=== PATIENT | male | born 1970 | race Caucasian/White ===

== ENCOUNTER 2018-02-15 15:00 | Emergency (ER) | payer MEDICAID ==
[~2018-02-15] VITALS: Ht 185.4 cm; Wt 94.0 kg
[~2018-02-15 15:00] MED LIST: BUPR75TA6 PO; CELE50CA PO; LOSA50TA2 PO; ZOLP-413 PO; ZOLP5TAB6 PO
[2018-02-15] MEDS ORDERED: ONDANSETRON ODT 4 MG ONE (15:27)
[2018-02-15] MEDS ORDERED: ONDANSETRON ODT 4 MG PO ONE (15:30)
[2018-02-15] MEDS ORDERED: hydrALAzine 20 MG/ML, 1ML ONE (15:47)
[2018-02-15] MEDS ORDERED: LORazepam 2 MG/ML, 1ML ONE (15:48)
[2018-02-15 15:49] LABS: ALANINE AMINOTRANSFERASE 55 U/L (12-78); ANION GAP 10 mmol/L (5-15); CHLORIDE 99 mmol/L (98-107); CREATININE 0.95 mg/dL (0.7-1.3)
[2018-02-15 15:52] LABS: ALKALINE PHOSPHATASE 104 U/L (45-117); BILIRUBIN,TOTAL 1.6 mg/dL (0.2-1.0); TOTAL PROTEIN 8.8 g/dL (6.4-8.2)
[2018-02-15 15:53] LABS: BASOPHILS # (AUTO) 0.04 x10^3/uL (0-0.1); BASOPHILS % (AUTO) 1 % (0-1); EOSINOPHILS # (AUTO) 0.02 x10^3/uL (0-0.4); EOSINOPHILS % (AUTO) 0 % (1-7); LYMPHOCYTES # (AUTO) 2.71 x10^3/uL (1-3.4); LYMPHOCYTES % (AUTO) 36 % (22-44); MD NO; MEAN CORPUSCULAR HEMOGLOBIN 32.1 pg (27.5-34.5); MEAN CORPUSCULAR HGB CONC 34.2 g/dL (33.2-36.2); MEAN CORPUSCULAR VOLUME 93.9 fL (81-97); MEAN PLATELET VOLUME 7.9 fL (7.4-10.4); MONOCYTES # (AUTO) 0.55 x10^3/uL (0.2-0.8); MONOCYTES % (AUTO) 7 % (2-9); NEUTROPHILS # (AUTO) 4.28 x10^3/uL (1.8-6.8); NEUTROPHILS % (AUTO) 56 % (42-75); PLATELET COUNT 210 x10^3/uL (130-400); RED BLOOD COUNT 5.47 x10^6/uL (4.38-5.82); RED CELL DISTRIBUTION WIDTH 16.4 % (9.4-14.8)
[2018-02-15] MEDS ORDERED: LORazepam 2 MG/ML, 1ML IVPush ONE (16:00)
[2018-02-15] MEDS ORDERED: hydrALAzine 20 MG/ML, 1ML IV ONE (16:00)
[2018-02-15 16:02] LABS: INTERNATIONAL NORMALIZED RATIO 1.15 (0.93-1.1); PROTHROMBIN TIME 11.9 Seconds (9.6-11.5)
[2018-02-15 16:04] LABS: MICROSCOPIC INDICATED
[2018-02-15 16:09] LABS: TROPONIN I < 0.015 ng/mL (0.000-0.045)
[2018-02-15 16:47] LABS: CULTURE INDICATED? NO
[2018-02-15 18:03] VITALS: BP 175/121
== END 2018-02-15 18:55 | disposition home or self-care (01) ==
LOC: ED 18:18
DX: F41.9 Anxiety disorder, unspecified (principal); R45.1 Restlessness and agitation; F10.239 Alcohol dependence with withdrawal, unspecified; I10 Essential (primary) hypertension
CPT/HCPCS: 36415; 71045; 80053; 81001; 83690; 83880; 84484; 85025; 85610; 93005; 96374; 96375; 99285; J0360; J2060; Q0162

== ENCOUNTER 2018-11-21 09:42 | Inpatient (IN) | payer MEDICAID ==
[~2018-11-21] VITALS: Ht 185.4 cm; Wt 88.7 kg
--- NOTE | 2018-11-21 09:57 | NUR ---
EKG IN TRIAGE
[2018-11-21 10:43] LABS: MEAN CORPUSCULAR HEMOGLOBIN 33.5 pg (27.5-34.5); MEAN CORPUSCULAR HGB CONC 34.2 g/dL (33.2-36.2); MEAN CORPUSCULAR VOLUME 98.1 fL (81-97); MEAN PLATELET VOLUME 8.3 fL (7.4-10.4); PLATELET COUNT 300 x10^3/uL (130-400); RED BLOOD COUNT 4.77 x10^6/uL (4.38-5.82); RED CELL DISTRIBUTION WIDTH 13.1 % (9.4-14.8)
[2018-11-21 10:56] LABS: BASOPHILS # (AUTO) 0.05 x10^3/uL (0-0.1); BASOPHILS % (AUTO) 0 % (0-1); EOSINOPHILS # (AUTO) 0.01 x10^3/uL (0-0.4); EOSINOPHILS % (AUTO) 0 % (1-7); LYMPHOCYTES # (AUTO) 1.43 x10^3/uL (1-3.4); LYMPHOCYTES % (AUTO) 7 % (22-44); MD SCAN; MONOCYTES # (AUTO) 0.74 x10^3/uL (0.2-0.8); MONOCYTES % (AUTO) 4 % (2-9); NEUTROPHILS # (AUTO) 18.13 x10^3/uL (1.8-6.8); NEUTROPHILS % (AUTO) 89 % (42-75)
[2018-11-21 11:02] LABS: ALANINE AMINOTRANSFERASE 25 U/L (12-78); ALKALINE PHOSPHATASE 66 U/L (45-117); BILIRUBIN,TOTAL 1.2 mg/dL (0.2-1.0); CREATININE 1.07 mg/dL (0.7-1.3); TOTAL PROTEIN 8.6 g/dL (6.4-8.2); TROPONIN I < 0.015 ng/mL (0.000-0.045)
[2018-11-21 11:09] LABS: CHLORIDE 94 mmol/L (98-107)
[2018-11-21 11:11] LABS: ANION GAP 12 mmol/L (5-15)
[2018-11-21 11:12] LABS: ALBUMIN 3.6 g/dL (3.4-5.0); CALCIUM 9.8 mg/dL (8.5-10.1)
[2018-11-21] MEDS ORDERED: SODIUM CHLORIDE FLUSH 10ML SYR IVF ONE (11:30)
[2018-11-21] MEDS ORDERED: SODIUM CHLORIDE 0.9% 1,000ML IVBOLUS ONE (11:30)
[2018-11-21] MEDS ORDERED: ASPIRIN 81 MG TABLET CHEW PO ONE (11:30)
[2018-11-21] MEDS ORDERED: CEFTRIAXONE PMX 1GM/50ML 50 ML IVPB ONE (11:30)
[2018-11-21] MEDS ORDERED: RISPERIDONE PO (11:47)
[2018-11-21] MEDS ORDERED: CITA40TA5 PO (11:47)
[2018-11-21] MEDS ORDERED: BUSPAR PO (11:47)
[2018-11-21] MEDS ORDERED: HYDR12.517 PO (11:47)
[2018-11-21] MEDS ORDERED: THIAMINE 100MG TABLET ONE (11:57)
[2018-11-21] MEDS ORDERED: ASPIRIN 81 MG TABLET CHEW ONE (11:57)
[2018-11-21] MEDS ORDERED: LORazepam 2 MG/ML, 1ML ONE (11:57)
[2018-11-21] MEDS ORDERED: CEFTRIAXONE PMX 1GM/50ML 50 ML ONE (11:57)
[2018-11-21] MEDS ORDERED: NS + 40MEQ KCL 1,000 ML IV ONE (11:58)
[2018-11-21] MEDS ORDERED: LORazepam 2 MG/ML, 1ML IVPush PRN ×2 (12:00→17:30)
[2018-11-21] MEDS ORDERED: POTASSIUM CHLORIDE 10% 40 MEQ/30 ML UDC PO ONE (12:00)
[2018-11-21] MEDS ORDERED: THIAMINE 100MG TABLET PO ONE (12:00)
[2018-11-21] MEDS ORDERED: POTASSIUM CHLORIDE 40 MEQ in SODIUM CHLORIDE 0.9% 500 ML IV ONE (12:00)
[2018-11-21] MEDS: AZITHROMYCIN 500 MG in SODIUM CHLORIDE 0.9% 250 ML IV ONE ×2 (12:11→13:03)
--- NOTE | 2018-11-21 12:27 | NUR ---
PT MEDICATED PER EMAR. RESTING IN BED WITH NO COMPLAINTS. CALL LIGHT WITHIN REACH.
[2018-11-21] MEDS ORDERED: ACETAMINOPHEN 325 MG TABLET PO PRN (14:00)
[2018-11-21] MEDS ORDERED: DIPHENHYDRAMINE 25 MG CAPSULE PO PRN (14:00)
[2018-11-21] MEDS ORDERED: LABETALOL 5MG/ML, 20ML IVPush PRN (14:00)
[2018-11-21] MEDS ORDERED: hydrALAzine 20 MG/ML, 1ML IVPush PRN (14:00)
[2018-11-21] MEDS ORDERED: METHOCARBAMOL 500 MG TABLET PO PRN (14:00)
[2018-11-21] MEDS ORDERED: ONDANSETRON 2MG/ML, 2ML IVPush PRN (14:00)
[2018-11-21 14:01] LABS: INTERNATIONAL NORMALIZED RATIO 0.95 (0.93-1.1)
[2018-11-21] MEDS: CEFTRIAXONE PMX 1GM/50ML 50 ML IV SCH (14:09)
--- NOTE | 2018-11-21 14:11 | NUR ---
PT UP TO BATRHOOM TO PROVIDE STOOL SAMPLE. RESTING IN BED. DENIES NEEDS. CALL LIGHT IN REACH.
--- NOTE | 2018-11-21 14:12 | NUR ---
STOOL COLLECTED AND WALKED TO LAB.
[2018-11-21] MEDS ORDERED: ENOXAPARIN 40 MG/0.4 ML ONE (14:19)
[2018-11-21] MEDS ORDERED: NICOTINE 14MG/24 HR PATCH.TD24 ONE (14:19)
[2018-11-21] MEDS: ENOXAPARIN 40 MG/0.4 ML SQ SCH (14:25)
[2018-11-21] MEDS: NICOTINE 14MG/24 HR PATCH.TD24 TD SCH (14:25)
[2018-11-21] MEDS ORDERED: LIDODERM 5% PATCH TD PRN (14:30)
[2018-11-21] MEDS ORDERED: cloniDINE 0.1MG PATCH TD SCH (14:30)
--- NOTE | 2018-11-21 14:30 | NUR ---
PT MEDICATED PER EMAR. PT PUT INTO SPECIAL ISOLATION CONTACT. C-DIFF RESULTS PENDING.
[2018-11-21] MEDS ORDERED: ALBUTEROL SULFATE 2.5 MG/3 ML ONE (14:39)
[2018-11-21] MEDS ORDERED: ALBUTEROL/IPRATROPIUM 2.5MG/0.5MG, 3 ML ONE (14:40)
--- NOTE | 2018-11-21 15:06 | NUR ---
REPORT GIVEN TO HEYDI JOHNSON ON TELE 2.
[2018-11-21 15:19] LABS: CLOSTRIDIUM DIFFICILE ANTIGEN NEGATIVE; CLOSTRIDIUM DIFFICILE TOXIN NEGATIVE (Negative)
[2018-11-21] MEDS ORDERED: ALBUTEROL/IPRATROPIUM 2.5MG/0.5MG, 3 ML NPPB ONE (15:30)
[2018-11-21 16:03] VITALS: BP 136/81
[2018-11-21] MEDS: CHLORDIAZEPOXIDE 10 MG CAPSULE PO SCH ×2 (16:51→21:20)
[2018-11-21] MEDS: GABAPENTIN 300 MG CAPSULE PO SCH ×2 (16:51→21:20)
[2018-11-21] MEDS ORDERED: CHLORDIAZEPOXIDE 10 MG CAPSULE PO PRN (17:00)
[2018-11-21 17:05] LABS: ANION GAP 7 mmol/L (5-15); CALCIUM 8.3 mg/dL (8.5-10.1); CHLORIDE 101 mmol/L (98-107); CREATININE 0.97 mg/dL (0.7-1.3)
[2018-11-21] MEDS: NS + 40MEQ KCL 1,000 ML IV SCH (18:05)
[2018-11-21] MEDS: POTASSIUM CHLORIDE 20 MEQ TAB.ER.PRT PO SCH (18:05)
[2018-11-21 19:22] VITALS: BP 117/77
[2018-11-21] MEDS: ALBUTEROL/IPRATROPIUM 2.5MG/0.5MG, 3 ML NPPB SCH (20:39)
[2018-11-21] MEDS: GUAIFENESIN ER 600 MG TABLET PO SCH (21:19)
[2018-11-21] MEDS: THIAMINE 100MG TABLET PO SCH (21:20)
[2018-11-21] MEDS: DOXYCYCLINE 100MG TABLET PO SCH (21:20)
[2018-11-21] MEDS ORDERED: POTASSIUM CHLORIDE 20 MEQ TAB.ER.PRT PO ONE (22:00)
[2018-11-21] MEDS: KETOROLAC 30 MG/1 ML IV PRN (22:37)
[2018-11-22] MEDS: NS + 40MEQ KCL 1,000 ML IV SCH ×3 (02:05→18:18)
[2018-11-22 04:00] VITALS: BP 137/76
[2018-11-22 05:08] LABS: MEAN CORPUSCULAR HEMOGLOBIN 32.9 pg (27.5-34.5); MEAN CORPUSCULAR HGB CONC 33.1 g/dL (33.2-36.2); MEAN CORPUSCULAR VOLUME 99.5 fL (81-97); MEAN PLATELET VOLUME 8.5 fL (7.4-10.4); PLATELET COUNT 243 x10^3/uL (130-400); RED BLOOD COUNT 3.67 x10^6/uL (4.38-5.82); RED CELL DISTRIBUTION WIDTH 13.4 % (9.4-14.8)
[2018-11-22 05:18] LABS: ANION GAP 6 mmol/L (5-15); CALCIUM 8.6 mg/dL (8.5-10.1); CHLORIDE 105 mmol/L (98-107); CREATININE 0.84 mg/dL (0.7-1.3)
[2018-11-22] MEDS: CHLORDIAZEPOXIDE 10 MG CAPSULE PO SCH ×4 (05:45→21:06)
[2018-11-22 05:53] LABS: BASOPHILS # (AUTO) 0.03 x10^3/uL (0-0.1); BASOPHILS % (AUTO) 0 % (0-1); EOSINOPHILS # (AUTO) 0.18 x10^3/uL (0-0.4); EOSINOPHILS % (AUTO) 2 % (1-7); LYMPHOCYTES # (AUTO) 2.46 x10^3/uL (1-3.4); LYMPHOCYTES % (AUTO) 21 % (22-44); MD SCAN; MONOCYTES # (AUTO) 0.71 x10^3/uL (0.2-0.8); MONOCYTES % (AUTO) 6 % (2-9); NEUTROPHILS # (AUTO) 8.65 x10^3/uL (1.8-6.8); NEUTROPHILS % (AUTO) 72 % (42-75)
[2018-11-22 07:40] VITALS: BP 162/84
[2018-11-22] MEDS: POTASSIUM CHLORIDE 20 MEQ TAB.ER.PRT PO SCH ×2 (08:21→15:51)
[2018-11-22] MEDS: GABAPENTIN 300 MG CAPSULE PO SCH ×3 (08:21→21:05)
[2018-11-22] MEDS: GUAIFENESIN ER 600 MG TABLET PO SCH ×2 (08:21→21:06)
[2018-11-22] MEDS: THIAMINE 100MG TABLET PO SCH ×2 (08:21→21:06)
[2018-11-22] MEDS: MULTIVITAMIN 1 TABLET PO SCH (08:22)
[2018-11-22] MEDS: DOXYCYCLINE 100MG TABLET PO SCH ×2 (08:22→21:06)
[2018-11-22] MEDS: ALBUTEROL/IPRATROPIUM 2.5MG/0.5MG, 3 ML NPPB SCH ×3 (09:34→20:43)
[2018-11-22] MEDS: KETOROLAC 30 MG/1 ML IV PRN ×2 (10:10→21:05)
[2018-11-22 13:25] VITALS: BP 121/82
[2018-11-22] MEDS: NICOTINE 14MG/24 HR PATCH.TD24 TD SCH (13:53)
[2018-11-22] MEDS: ENOXAPARIN 40 MG/0.4 ML SQ SCH (13:53)
[2018-11-22] MEDS: CEFTRIAXONE PMX 1GM/50ML 50 ML IV SCH (13:54)
[2018-11-22 19:06] VITALS: BP 149/80
[2018-11-23 02:15] VITALS: BP 166/87
[2018-11-23] MEDS: NS + 40MEQ KCL 1,000 ML IV SCH ×2 (02:25→15:22)
[2018-11-23] MEDS: CHLORDIAZEPOXIDE 10 MG CAPSULE PO SCH ×3 (05:47→16:21)
[2018-11-23] MEDS: ALBUTEROL/IPRATROPIUM 2.5MG/0.5MG, 3 ML NPPB SCH ×2 (06:19→14:11)
[2018-11-23] MEDS: POTASSIUM CHLORIDE 20 MEQ TAB.ER.PRT PO SCH ×2 (08:38→16:22)
[2018-11-23] MEDS: THIAMINE 100MG TABLET PO SCH (08:39)
[2018-11-23] MEDS: GUAIFENESIN ER 600 MG TABLET PO SCH (08:39)
[2018-11-23] MEDS: GABAPENTIN 300 MG CAPSULE PO SCH ×2 (08:39→16:21)
[2018-11-23] MEDS: DOXYCYCLINE 100MG TABLET PO SCH (08:39)
[2018-11-23] MEDS: MULTIVITAMIN 1 TABLET PO SCH (08:39)
[2018-11-23 08:45] VITALS: BP 169/107
[2018-11-23] MEDS ORDERED: CEFD300C37 PO (08:55)
[2018-11-23] MEDS ORDERED: THIA100T67 PO (08:55)
[2018-11-23] MEDS ORDERED: GUAI600T31 PO (08:55)
[2018-11-23] MEDS ORDERED: NICO-486 TD (08:55)
[2018-11-23] MEDS ORDERED: DOXY100T PO (08:55)
[2018-11-23 13:25] VITALS: BP 179/115
[2018-11-23] MEDS: NICOTINE 14MG/24 HR PATCH.TD24 TD SCH (14:21)
[2018-11-23] MEDS: ENOXAPARIN 40 MG/0.4 ML SQ SCH (14:21)
[2018-11-23] MEDS: CEFTRIAXONE PMX 1GM/50ML 50 ML IV SCH (14:21)
[2018-11-23 15:22] VITALS: BP 161/94
[2018-11-23] MEDS ORDERED: GABA300C10 PO (17:22)
== END 2018-11-23 18:30 | disposition home or self-care (01) | DRG 871 ==
LOC: ED 11:45 → EDIP 12:14 → 4WST 15:49
PROVIDERS: ADMIT Internal Medicine; ATTEND Internal Medicine
DX: A41.9 Sepsis, unspecified organism (principal); J18.0 Bronchopneumonia, unspecified organism; J96.01 Acute respiratory failure with hypoxia; E44.0 Moderate protein-calorie malnutrition; E87.1 Hypo-osmolality and hyponatremia; E51.9 Thiamine deficiency, unspecified; F10.239 Alcohol dependence with withdrawal, unspecified; D75.89 Other specified diseases of blood and blood-forming organs; Z68.25 Body mass index [BMI] 25.0-25.9, adult; E87.6 Hypokalemia; I10 Essential (primary) hypertension
CPT/HCPCS: 36415; 84145; 99291; J7620; 71046; 80048; 80053; 83036; 83605; 84484; 85025; 85610; 87040; 87324; 93005; 94640; 96365; 96375; G0378; J0456; J0696; J1650; J1885; J3480; J2060; J7030; J7040; J7050

== ENCOUNTER 2019-08-02 16:56 | Inpatient (IN) | payer MEDICAID ==
[~2019-08-02] VITALS: Ht 182.9 cm; Wt 77.0 kg
[~2019-08-02 16:56] MED LIST changes: +BUSPAR PO; +CEFD300C37 PO; +CITA40TA5 PO; +DOXY100T PO; +GABA300C10 PO; +GUAI600T31 PO; +HYDR12.517 PO; +NICO-486 TD; +RISPERIDONE PO; +THIA100T67 PO
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
--- NOTE | 2019-08-02 17:50 | NUR ---
[facility] RECEVIED FROM HEYDI GIMENEZ. ASSUMED CARE.
[2019-08-02] MEDS ORDERED: ACETAMINOPHEN 500 MG TABLET ONE (17:51)
[2019-08-02 18:22] LABS: RAPID INFLUENZA A Negative (Negative); RAPID INFLUENZA B Negative (Negative)
[2019-08-02 18:28] LABS: MEAN CORPUSCULAR HEMOGLOBIN 27.2 pg (27.5-34.5); MEAN CORPUSCULAR HGB CONC 33.1 g/dL (33.2-36.2); MEAN CORPUSCULAR VOLUME 82.1 fL (81-97); PLATELET COUNT 640 x10^3/uL (130-400); RED BLOOD COUNT 3.24 x10^6/uL (4.38-5.82); RED CELL DISTRIBUTION WIDTH 15.6 % (9.4-14.8)
[2019-08-02] MEDS ORDERED: ACETAMINOPHEN 500 MG TABLET PO ONE (18:30)
[2019-08-02] MEDS ORDERED: SODIUM CHLORIDE 0.9% 1,000ML IVBOLUS ONE ×2 (18:30→19:00)
[2019-08-02 18:31] LABS: ANION GAP 10 mmol/L (5-15); CALCIUM 8.6 mg/dL (8.5-10.1); CHLORIDE 98 mmol/L (98-107); CREATININE 1.03 mg/dL (0.7-1.3)
[2019-08-02 18:37] LABS: ALANINE AMINOTRANSFERASE 32 U/L (12-78); ALKALINE PHOSPHATASE 293 U/L (45-117); BILIRUBIN,TOTAL 1.2 mg/dL (0.2-1.0); TOTAL PROTEIN 7.4 g/dL (6.4-8.2)
--- NOTE | 2019-08-02 18:47 | NUR ---
REPORT GIVEN TO HEYDI DICKERSON.
[2019-08-02] MEDS ORDERED: SODIUM CHLORIDE FLUSH 10ML SYR IVF ONE (19:00)
[2019-08-02 19:02] LABS: MD YES
[2019-08-02 19:27] LABS: BAND#(MANUAL) 0.23 x10^3/uL; BANDS%(MANUAL) 1 % (0-7); BASOS#(MANUAL) 0.23 x10^3/uL (0-0.1); BASOS% (MANUAL) 1 % (0-1); EOS#(MANUAL) 0.46 x10^3/uL (0.0-0.4); EOS% (MANUAL) 2 % (1-7); LYMPH#(MANUAL) 2.51 x10^3/uL (1-3.4); LYMPHS% (MANUAL) 11 % (22-44); MONOS#(MANUAL) 0.68 x10^3/uL (0.3-2.7); MONOS% (MANUAL) 3 % (2-9); SEGS% (MANUAL) 82 % (42-75)
[2019-08-02 19:29] LABS: ROULEAUX 1+
[2019-08-02] MEDS ORDERED: BENZONATATE 100 MG CAPSULE PO ONE (19:30)
[2019-08-02] MEDS ORDERED: AZITHROMYCIN 500 MG in SODIUM CHLORIDE 0.9% 250 ML IV ONE (19:30)
[2019-08-02] MEDS ORDERED: CEFTRIAXONE PMX 1GM/50ML 50 ML IV ONE ×2 (19:30→19:31)
[2019-08-02 19:31] LABS: <PLATELET ESTIMATE> INCREASED; <PLT MORPHOLOGY> NORMAL PLT MORPH; ANISOCYTOSIS 1+; HYPOCHROMIA 1+; POLYCHROMASIA 1+
--- NOTE | 2019-08-02 19:50 | NUR ---
REPORT TO HEYDI MOBLEY. PT UPDATED ON PLAN OF CARE, VERBALIZES UNDERSTANDING, DENIES ANY FURTHER NEEDS OR CONCERNS AT THIS TIME. CALL LIGHT IN REACH. AWAITING TRANSPORT AT THIS TIME.
[2019-08-02] MEDS ORDERED: CEFTRIAXONE PMX 1GM/50ML 50 ML ONE (19:52)
[2019-08-02] MEDS ORDERED: FENTANYL PF 100 MCG/2ML ONE (19:56)
[2019-08-02] MEDS ORDERED: FENTANYL PF 100 MCG/2ML IVPush ONE (20:00)
[2019-08-02 20:15] VITALS: BP 109/64
[2019-08-02] MEDS ORDERED: hydrALAzine 20 MG/ML, 1ML IVPush PRN (20:30)
[2019-08-02] MEDS: DOXYCYCLINE 100 MG in DEXTROSE 5% 250 ML IV SCH (21:49)
[2019-08-02] MEDS: POTASSIUM CHLORIDE 20 MEQ, MAGNESIUM SULFATE 2 GM, THIAMINE 200 MG, MVI ADULT 10 ML, FO... IV SCH (21:49)
[2019-08-02] MEDS ORDERED: POTASSIUM CHLORIDE 20 MEQ TAB.ER.PRT PO ONE (22:30)
[2019-08-02 23:08] VITALS: BP 98/52
[2019-08-03 01:05] VITALS: BP 106/64
[2019-08-03] MEDS ORDERED: ALBUTEROL SULFATE 2.5 MG/3 ML NPPB PRN (02:00)
[2019-08-03 02:23] VITALS: BP 109/62
[2019-08-03] MEDS ORDERED: ZOLPIDEM 10MG TABLET PO ONE (02:35)
[2019-08-03 07:55] VITALS: BP 109/65
[2019-08-03 08:50] LABS: MEAN CORPUSCULAR HEMOGLOBIN 26.9 pg (27.5-34.5); MEAN CORPUSCULAR HGB CONC 32.7 g/dL (33.2-36.2); MEAN CORPUSCULAR VOLUME 82.2 fL (81-97); MEAN PLATELET VOLUME 6.3 fL (7.4-10.4); PLATELET COUNT 624 x10^3/uL (130-400); RED CELL DISTRIBUTION WIDTH 15.8 % (9.4-14.8)
[2019-08-03 09:02] LABS: ANION GAP 5 mmol/L (5-15); CALCIUM 8.5 mg/dL (8.5-10.1); CHLORIDE 109 mmol/L (98-107)
[2019-08-03 09:03] LABS: CREATININE 0.63 mg/dL (0.7-1.3)
[2019-08-03] MEDS: KETOROLAC 30 MG/1 ML IV PRN ×2 (09:25→18:17)
[2019-08-03] MEDS: DOXYCYCLINE 100 MG in DEXTROSE 5% 250 ML IV SCH ×2 (09:26→22:26)
[2019-08-03 09:41] LABS: MD YES
[2019-08-03 09:43] LABS: BASOS% (MANUAL) 1 % (0-1); EOS% (MANUAL) 1 % (1-7); LYMPH#(MANUAL) 1.56 x10^3/uL (1-3.4); LYMPHS% (MANUAL) 8 % (22-44); MONOS#(MANUAL) 0.98 x10^3/uL (0.3-2.7); MONOS% (MANUAL) 5 % (2-9); SEG#(MANUAL) 16.58 x10^3/uL (1.8-6.8); SEGS% (MANUAL) 85 % (42-75)
[2019-08-03 09:45] LABS: HYPOCHROMIA 1+
[2019-08-03 09:46] LABS: <PLATELET ESTIMATE> INCREASED; <PLT MORPHOLOGY> NORMAL PLT MORPH; ANISOCYTOSIS 1+
[2019-08-03 13:19] VITALS: BP 111/68
[2019-08-03] MEDS ORDERED: LACTATED RINGERS 1,000 ML IV SCH (15:30)
[2019-08-03] MEDS: GUAIFENESIN ER 600 MG TABLET PO SCH (19:03)
[2019-08-03] MEDS ORDERED: CEFTRIAXONE PMX 1GM/50ML 50 ML IV SCH (20:00)
[2019-08-03 20:28] VITALS: BP 158/72
[2019-08-03] MEDS: ENOXAPARIN 40 MG/0.4 ML SQ SCH (21:03)
[2019-08-03] MEDS: POTASSIUM CHLORIDE 20 MEQ, MAGNESIUM SULFATE 2 GM, THIAMINE 200 MG, MVI ADULT 10 ML, FO... IV SCH (23:03)
[2019-08-04 01:01] VITALS: BP 152/82
[2019-08-04 05:10] VITALS: BP 136/59
[2019-08-04] MEDS: KETOROLAC 30 MG/1 ML IV PRN (05:14)
[2019-08-04 06:41] LABS: MEAN CORPUSCULAR VOLUME 81.7 fL (81-97); MEAN PLATELET VOLUME 6.6 fL (7.4-10.4); PLATELET COUNT 581 x10^3/uL (130-400); RED BLOOD COUNT 3.02 x10^6/uL (4.38-5.82); RED CELL DISTRIBUTION WIDTH 15.9 % (9.4-14.8)
[2019-08-04 06:53] LABS: ALBUMIN 1.5 g/dL (3.4-5.0); ANION GAP 6 mmol/L (5-15); CALCIUM 8.1 mg/dL (8.5-10.1); CHLORIDE 105 mmol/L (98-107)
[2019-08-04 06:56] LABS: ALANINE AMINOTRANSFERASE 20 U/L (12-78); ALKALINE PHOSPHATASE 218 U/L (45-117); BILIRUBIN,TOTAL 0.7 mg/dL (0.2-1.0); CREATININE 0.52 mg/dL (0.7-1.3); TOTAL PROTEIN 6.1 g/dL (6.4-8.2)
[2019-08-04 07:17] LABS: MD YES
[2019-08-04 07:38] LABS: <PLATELET ESTIMATE> INCREASED; <PLT MORPHOLOGY> NORMAL PLT MORPH; ANISOCYTOSIS 1+; BASOS#(MANUAL) 0.18 x10^3/uL (0-0.1); BASOS% (MANUAL) 1 % (0-1); EOS#(MANUAL) 0.36 x10^3/uL (0.0-0.4); EOS% (MANUAL) 2 % (1-7); HYPOCHROMIA 1+; LYMPH#(MANUAL) 1.27 x10^3/uL (1-3.4); LYMPHS% (MANUAL) 7 % (22-44); MONOS#(MANUAL) 1.45 x10^3/uL (0.3-2.7); MONOS% (MANUAL) 8 % (2-9); SEG#(MANUAL) 14.84 x10^3/uL (1.8-6.8); SEGS% (MANUAL) 82 % (42-75)
[2019-08-04] MEDS: GUAIFENESIN ER 600 MG TABLET PO SCH ×2 (08:10→20:06)
[2019-08-04] MEDS: DOXYCYCLINE 100 MG in DEXTROSE 5% 250 ML IV SCH (08:10)
[2019-08-04 08:19] VITALS: BP 103/69
[2019-08-04] MEDS: MORPHINE SULFATE 4 MG/ML, 1ML IVPush PRN ×3 (12:26→22:41)
[2019-08-04 13:35] VITALS: BP 148/79
[2019-08-04] MEDS ORDERED: OMNIPAQUE 350 MG/ML, 75ML BOTTLE ONE (15:46)
[2019-08-04] MEDS ORDERED: NS + 20MEQ KCL 1,000 ML IV SCH (17:00)
[2019-08-04] MEDS ORDERED: VANCOMYCIN PER PHARMACY MC PRN (17:00)
[2019-08-04] MEDS ORDERED: PHARMACOKINETIC CONSULTATION MC ONE (17:30)
[2019-08-04] MEDS ORDERED: PHARMACOKINETIC MONITORING MC PRN (17:30)
[2019-08-04 19:33] VITALS: BP 147/73
[2019-08-04] MEDS: CEFEPIME 2 GM in DEXTROSE 5% 100 ML IV SCH (20:06)
[2019-08-04] MEDS: ENOXAPARIN 40 MG/0.4 ML SQ SCH (20:06)
[2019-08-04] MEDS: VANCOMYCIN 1,500 MG in SODIUM CHLORIDE 0.9% 250 ML IV SCH (20:57)
[2019-08-04] MEDS ORDERED: FUROSEMIDE 20 MG/2 ML IV ONE (21:30)
[2019-08-04 22:38] VITALS: BP 155/87
[2019-08-04] MEDS: POTASSIUM CHLORIDE 20 MEQ TAB.ER.PRT PO SCH (23:03)
[2019-08-05 02:37] VITALS: BP 130/77
[2019-08-05] MEDS: MORPHINE SULFATE 4 MG/ML, 1ML IVPush PRN ×4 (03:00→21:55)
[2019-08-05] MEDS: CEFEPIME 2 GM in DEXTROSE 5% 100 ML IV SCH ×3 (04:55→20:00)
[2019-08-05 05:56] LABS: MEAN CORPUSCULAR HEMOGLOBIN 26.7 pg (27.5-34.5); MEAN CORPUSCULAR HGB CONC 32.5 g/dL (33.2-36.2); MEAN PLATELET VOLUME 6.4 fL (7.4-10.4); PLATELET COUNT 674 x10^3/uL (130-400); RED BLOOD COUNT 3.08 x10^6/uL (4.38-5.82)
[2019-08-05 06:01] LABS: ALBUMIN 1.6 g/dL (3.4-5.0); ANION GAP 8 mmol/L (5-15); CALCIUM 8.4 mg/dL (8.5-10.1); CHLORIDE 100 mmol/L (98-107)
[2019-08-05 06:05] LABS: ALANINE AMINOTRANSFERASE 17 U/L (12-78); ALKALINE PHOSPHATASE 176 U/L (45-117); BILIRUBIN,TOTAL 0.8 mg/dL (0.2-1.0); CREATININE 0.62 mg/dL (0.7-1.3); TOTAL PROTEIN 6.6 g/dL (6.4-8.2)
[2019-08-05 06:25] LABS: MD YES
[2019-08-05 06:27] LABS: <PLATELET ESTIMATE> INCREASED; <PLT MORPHOLOGY> NORMAL PLT MORPH; ANISOCYTOSIS 1+; BAND#(MANUAL) 0.65 x10^3/uL; BANDS%(MANUAL) 3 % (0-7); EOS#(MANUAL) 0.43 x10^3/uL (0.0-0.4); EOS% (MANUAL) 2 % (1-7); HYPOCHROMIA 1+; LYMPH#(MANUAL) 2.82 x10^3/uL (1-3.4); LYMPHS% (MANUAL) 13 % (22-44); METAMYELOCYTES# (MANUAL) 0.43 x10^3/uL (0-0); METAMYELOCYTES% (MANUAL) 2 % (0-1); MONOS#(MANUAL) 1.95 x10^3/uL (0.3-2.7); MONOS% (MANUAL) 9 % (2-9); MYELOCYTES# (MANUAL) 0.22 x10^3/uL (0-0); MYELOCYTES% (MANUAL) 1 % (0-0); SEG#(MANUAL) 15.19 x10^3/uL (1.8-6.8); SEGS% (MANUAL) 70 % (42-75)
[2019-08-05 08:52] VITALS: BP 125/73
[2019-08-05] MEDS: FUROSEMIDE 20 MG/2 ML IV SCH ×2 (09:51→17:49)
[2019-08-05] MEDS: GUAIFENESIN ER 600 MG TABLET PO SCH ×2 (09:51→21:55)
[2019-08-05] MEDS: FOLIC ACID 1 MG TABLET PO SCH (09:52)
[2019-08-05] MEDS: THIAMINE 100MG TABLET PO SCH (09:52)
[2019-08-05] MEDS: POTASSIUM CHLORIDE 20 MEQ TAB.ER.PRT PO SCH ×2 (09:52→17:49)
[2019-08-05] MEDS: MULTIVITAMIN 1 TABLET PO SCH (09:52)
[2019-08-05] MEDS: VANCOMYCIN 1,500 MG in SODIUM CHLORIDE 0.9% 250 ML IV SCH ×2 (09:53→21:56)
[2019-08-05 15:23] VITALS: BP 114/72
[2019-08-05] MEDS ORDERED: NS + 20MEQ KCL 1,000 ML IV SCH (17:00)
[2019-08-05 19:43] VITALS: BP 126/75
[2019-08-05] MEDS: ENOXAPARIN 40 MG/0.4 ML SQ SCH (20:00)
[2019-08-06 01:50] VITALS: BP 118/76
[2019-08-06] MEDS: MORPHINE SULFATE 4 MG/ML, 1ML IVPush PRN ×3 (04:25→18:18)
[2019-08-06] MEDS: CEFEPIME 2 GM in DEXTROSE 5% 100 ML IV SCH ×3 (04:25→20:35)
[2019-08-06 08:48] LABS: MEAN CORPUSCULAR HEMOGLOBIN 26.5 pg (27.5-34.5); MEAN CORPUSCULAR HGB CONC 32.5 g/dL (33.2-36.2); MEAN CORPUSCULAR VOLUME 81.6 fL (81-97); MEAN PLATELET VOLUME 6.2 fL (7.4-10.4); PLATELET COUNT 670 x10^3/uL (130-400); RED BLOOD COUNT 2.98 x10^6/uL (4.38-5.82); RED CELL DISTRIBUTION WIDTH 16.1 % (9.4-14.8)
[2019-08-06 09:12] LABS: CREATININE 0.52 mg/dL (0.7-1.3); VANCOMYCIN,TROUGH 8.7 mcg/mL (5.0-10.0)
[2019-08-06 09:22] LABS: CREATININE 0.52 mg/dL (0.7-1.3)
[2019-08-06 09:41] LABS: CHLORIDE 99 mmol/L (98-107)
[2019-08-06 09:42] LABS: ANION GAP 8 mmol/L (5-15); CALCIUM 8.1 mg/dL (8.5-10.1)
[2019-08-06 09:43] LABS: ALANINE AMINOTRANSFERASE 30 U/L (12-78); ALBUMIN 1.6 g/dL (3.4-5.0); ALKALINE PHOSPHATASE 166 U/L (45-117); BILIRUBIN,TOTAL 0.4 mg/dL (0.2-1.0); TOTAL PROTEIN 6.8 g/dL (6.4-8.2)
[2019-08-06 09:49] LABS: MD YES
[2019-08-06 09:50] LABS: BAND#(MANUAL) 0.18 x10^3/uL; BANDS%(MANUAL) 1 % (0-7); EOS#(MANUAL) 0.18 x10^3/uL (0.0-0.4); EOS% (MANUAL) 1 % (1-7); METAMYELOCYTES# (MANUAL) 0.18 x10^3/uL (0-0); METAMYELOCYTES% (MANUAL) 1 % (0-1)
[2019-08-06 09:51] LABS: LYMPHS% (MANUAL) 8 % (22-44); MONOS% (MANUAL) 12 % (2-9); SEG#(MANUAL) 13.48 x10^3/uL (1.8-6.8); SEGS% (MANUAL) 77 % (42-75)
[2019-08-06 09:52] LABS: ANISOCYTOSIS 1+; HYPOCHROMIA 1+; POLYCHROMASIA 1+
[2019-08-06 09:53] LABS: <PLATELET ESTIMATE> INCREASED; <PLT MORPHOLOGY> NORMAL PLT MORPH
[2019-08-06] MEDS: THIAMINE 100MG TABLET PO SCH (10:02)
[2019-08-06] MEDS: POTASSIUM CHLORIDE 20 MEQ TAB.ER.PRT PO SCH ×2 (10:02→18:09)
[2019-08-06] MEDS: GUAIFENESIN ER 600 MG TABLET PO SCH ×2 (10:02→20:36)
[2019-08-06] MEDS: FUROSEMIDE 20 MG/2 ML IV SCH ×2 (10:02→18:09)
[2019-08-06] MEDS: FOLIC ACID 1 MG TABLET PO SCH (10:03)
[2019-08-06] MEDS: MULTIVITAMIN 1 TABLET PO SCH (10:03)
[2019-08-06 10:08] VITALS: BP 127/77
[2019-08-06] MEDS: VANCOMYCIN 1,200 MG in SODIUM CHLORIDE 0.9% 250 ML IV SCH ×2 (10:10→18:09)
[2019-08-06 13:11] VITALS: BP 111/73
[2019-08-06] MEDS ORDERED: ALBUTEROL SULFATE 2.5MG/0.5ML NPPB PRN (15:30)
[2019-08-06] MEDS ORDERED: ALBUTEROL HFA 90 MCG/SPRAY INH PRN (15:30)
[2019-08-06] MEDS: ENOXAPARIN 40 MG/0.4 ML SQ SCH (18:09)
[2019-08-06 18:39] VITALS: BP 116/78
[2019-08-07] MEDS: VANCOMYCIN 1,200 MG in SODIUM CHLORIDE 0.9% 250 ML IV SCH ×3 (01:49→18:27)
[2019-08-07 01:51] VITALS: BP 110/61
[2019-08-07] MEDS: MORPHINE SULFATE 4 MG/ML, 1ML IVPush PRN (01:54)
[2019-08-07] MEDS: CEFEPIME 2 GM in DEXTROSE 5% 100 ML IV SCH ×3 (04:19→21:48)
[2019-08-07] MEDS: ACETAMINOPHEN 325 MG TABLET PO PRN ×2 (04:20→08:25)
[2019-08-07 06:30] LABS: MEAN CORPUSCULAR HEMOGLOBIN 26.6 pg (27.5-34.5); MEAN CORPUSCULAR HGB CONC 32.9 g/dL (33.2-36.2); MEAN CORPUSCULAR VOLUME 80.7 fL (81-97); MEAN PLATELET VOLUME 6.6 fL (7.4-10.4); PLATELET COUNT 691 x10^3/uL (130-400); RED BLOOD COUNT 2.96 x10^6/uL (4.38-5.82); RED CELL DISTRIBUTION WIDTH 16.3 % (9.4-14.8)
[2019-08-07 06:45] LABS: ANION GAP 7 mmol/L (5-15); CALCIUM 8.4 mg/dL (8.5-10.1); CHLORIDE 98 mmol/L (98-107)
[2019-08-07 06:49] LABS: CREATININE 0.59 mg/dL (0.7-1.3)
[2019-08-07 06:52] LABS: MD YES
[2019-08-07 06:53] LABS: BAND#(MANUAL) 0.58 x10^3/uL; BANDS%(MANUAL) 3 % (0-7); LYMPH#(MANUAL) 0.97 x10^3/uL (1-3.4); LYMPHS% (MANUAL) 5 % (22-44); METAMYELOCYTES# (MANUAL) 0.39 x10^3/uL (0-0); METAMYELOCYTES% (MANUAL) 2 % (0-1); MONOS#(MANUAL) 1.55 x10^3/uL (0.3-2.7); MONOS% (MANUAL) 8 % (2-9); MYELOCYTES# (MANUAL) 0.19 x10^3/uL (0-0); MYELOCYTES% (MANUAL) 1 % (0-0); SEG#(MANUAL) 15.71 x10^3/uL (1.8-6.8); SEGS% (MANUAL) 81 % (42-75)
[2019-08-07 06:54] LABS: <PLATELET ESTIMATE> INCREASED; <PLT MORPHOLOGY> NORMAL PLT MORPH; ANISOCYTOSIS 1+; HYPOCHROMIA 1+; POLYCHROMASIA 1+
[2019-08-07 07:07] VITALS: BP 112/71
[2019-08-07] MEDS: POTASSIUM CHLORIDE 20 MEQ TAB.ER.PRT PO SCH ×2 (08:21→16:22)
[2019-08-07] MEDS: FUROSEMIDE 20 MG/2 ML IV SCH ×2 (08:21→16:22)
[2019-08-07] MEDS: MULTIVITAMIN 1 TABLET PO SCH (08:22)
[2019-08-07] MEDS: THIAMINE 100MG TABLET PO SCH (08:22)
[2019-08-07] MEDS: GUAIFENESIN ER 600 MG TABLET PO SCH ×2 (08:25→21:47)
[2019-08-07] MEDS: FOLIC ACID 1 MG TABLET PO SCH (08:25)
[2019-08-07 14:54] VITALS: BP 105/62
[2019-08-07] MEDS: KETOROLAC 30 MG/1 ML IV PRN (16:22)
[2019-08-07] MEDS: BENZONATATE 100 MG CAPSULE PO PRN (18:32)
[2019-08-07 20:32] VITALS: BP 114/70
[2019-08-07] MEDS: ENOXAPARIN 40 MG/0.4 ML SQ SCH (21:48)
[2019-08-08] MEDS: VANCOMYCIN 1,200 MG in SODIUM CHLORIDE 0.9% 250 ML IV SCH ×3 (02:06→18:06)
[2019-08-08] MEDS: BENZONATATE 100 MG CAPSULE PO PRN ×3 (02:06→22:58)
[2019-08-08 02:20] VITALS: BP 134/85
[2019-08-08] MEDS: ACETAMINOPHEN 325 MG TABLET PO PRN (02:28)
[2019-08-08] MEDS: CEFEPIME 2 GM in DEXTROSE 5% 100 ML IV SCH ×3 (05:37→21:04)
[2019-08-08 06:16] LABS: ANION GAP 7 mmol/L (5-15); CALCIUM 8.3 mg/dL (8.5-10.1); CHLORIDE 99 mmol/L (98-107); CREATININE 0.66 mg/dL (0.7-1.3)
[2019-08-08 06:20] LABS: MEAN CORPUSCULAR HEMOGLOBIN 26.5 pg (27.5-34.5); MEAN CORPUSCULAR HGB CONC 32.6 g/dL (33.2-36.2); MEAN CORPUSCULAR VOLUME 81.4 fL (81-97); MEAN PLATELET VOLUME 6.7 fL (7.4-10.4); PLATELET COUNT 718 x10^3/uL (130-400); RED BLOOD COUNT 2.98 x10^6/uL (4.38-5.82); RED CELL DISTRIBUTION WIDTH 15.9 % (9.4-14.8)
[2019-08-08 06:44] LABS: CREATININE 0.65 mg/dL (0.7-1.3)
[2019-08-08 06:48] LABS: MD YES
[2019-08-08 06:49] LABS: LYMPH#(MANUAL) 3.99 x10^3/uL (1-3.4); LYMPHS% (MANUAL) 14 % (22-44); METAMYELOCYTES# (MANUAL) 0.29 x10^3/uL (0-0); METAMYELOCYTES% (MANUAL) 1 % (0-1); MONOS#(MANUAL) 1.43 x10^3/uL (0.3-2.7); MONOS% (MANUAL) 5 % (2-9)
[2019-08-08 06:51] LABS: BAND#(MANUAL) 1.71 x10^3/uL; BANDS%(MANUAL) 6 % (0-7); SEGS% (MANUAL) 74 % (42-75)
[2019-08-08 06:53] LABS: ANISOCYTOSIS 1+; POLYCHROMASIA 1+
[2019-08-08 06:54] LABS: MICROCYTOSIS 1+
[2019-08-08 06:55] LABS: <PLATELET ESTIMATE> INCREASED; <PLT MORPHOLOGY> NORMAL PLT MORPH; HYPOCHROMIA 1+; TOXIC GRAN 1+
[2019-08-08 07:51] VITALS: BP 120/72
[2019-08-08] MEDS: FUROSEMIDE 20 MG/2 ML IV SCH ×2 (07:52→18:06)
[2019-08-08] MEDS: MULTIVITAMIN 1 TABLET PO SCH (07:52)
[2019-08-08] MEDS: THIAMINE 100MG TABLET PO SCH (07:53)
[2019-08-08] MEDS: GUAIFENESIN ER 600 MG TABLET PO SCH ×2 (07:53→21:04)
[2019-08-08] MEDS: FOLIC ACID 1 MG TABLET PO SCH (07:53)
[2019-08-08] MEDS: POTASSIUM CHLORIDE 20 MEQ TAB.ER.PRT PO SCH ×2 (07:54→17:42)
[2019-08-08 12:36] LABS: FIO2 RA %
[2019-08-08] MEDS: HYDROcodone/APAP 10/325 MG TABLET PO PRN ×3 (13:17→22:58)
[2019-08-08 13:20] VITALS: BP 119/73
[2019-08-08] MEDS ORDERED: LIDOCAINE 1%, 10ML ONE ×2 (14:07→17:06)
[2019-08-08] MEDS: ENOXAPARIN 40 MG/0.4 ML SQ SCH (18:37)
[2019-08-08 20:24] VITALS: BP 109/65
[2019-08-09 00:53] VITALS: BP 116/68
[2019-08-09 01:29] LABS: MEAN CORPUSCULAR HEMOGLOBIN 26.4 pg (27.5-34.5); MEAN CORPUSCULAR HGB CONC 32.7 g/dL (33.2-36.2); MEAN CORPUSCULAR VOLUME 80.6 fL (81-97); MEAN PLATELET VOLUME 6.9 fL (7.4-10.4); PLATELET COUNT 666 x10^3/uL (130-400); RED BLOOD COUNT 2.66 x10^6/uL (4.38-5.82); RED CELL DISTRIBUTION WIDTH 16.4 % (9.4-14.8)
[2019-08-09 01:39] LABS: ANION GAP 6 mmol/L (5-15); CALCIUM 8.1 mg/dL (8.5-10.1); CHLORIDE 97 mmol/L (98-107)
[2019-08-09 01:40] LABS: VANCOMYCIN,TROUGH 16.1 mcg/mL (5.0-10.0)
[2019-08-09 01:49] LABS: MD YES
[2019-08-09 01:51] LABS: ANISOCYTOSIS 1+; EOS#(MANUAL) 0.25 x10^3/uL (0.0-0.4); EOS% (MANUAL) 1 % (1-7); HYPOCHROMIA 1+; LYMPH#(MANUAL) 2.78 x10^3/uL (1-3.4); LYMPHS% (MANUAL) 11 % (22-44); MONOS#(MANUAL) 1.01 x10^3/uL (0.3-2.7); MONOS% (MANUAL) 4 % (2-9); SEG#(MANUAL) 21.25 x10^3/uL (1.8-6.8); SEGS% (MANUAL) 84 % (42-75)
[2019-08-09 01:52] LABS: <PLATELET ESTIMATE> INCREASED; <PLT MORPHOLOGY> NORMAL PLT MORPH; POLYCHROMASIA 1+
[2019-08-09] MEDS: VANCOMYCIN 1,200 MG in SODIUM CHLORIDE 0.9% 250 ML IV SCH ×3 (02:05→17:39)
[2019-08-09] MEDS: CEFEPIME 2 GM in DEXTROSE 5% 100 ML IV SCH ×3 (05:16→21:13)
[2019-08-09 07:44] VITALS: BP 115/61
[2019-08-09] MEDS: FUROSEMIDE 20 MG/2 ML IV SCH ×2 (07:47→17:39)
[2019-08-09] MEDS: POTASSIUM CHLORIDE 20 MEQ TAB.ER.PRT PO SCH ×2 (07:47→17:43)
[2019-08-09] MEDS: FOLIC ACID 1 MG TABLET PO SCH (07:47)
[2019-08-09] MEDS: THIAMINE 100MG TABLET PO SCH (07:48)
[2019-08-09] MEDS: HYDROcodone/APAP 10/325 MG TABLET PO PRN ×4 (07:48→23:51)
[2019-08-09] MEDS: MULTIVITAMIN 1 TABLET PO SCH (07:48)
[2019-08-09] MEDS: GUAIFENESIN ER 600 MG TABLET PO SCH ×2 (07:48→21:13)
[2019-08-09 13:37] VITALS: BP 115/66
[2019-08-09] MEDS: BENZONATATE 100 MG CAPSULE PO PRN ×2 (18:01→23:50)
[2019-08-09 19:31] VITALS: BP 131/75
[2019-08-09] MEDS: ENOXAPARIN 40 MG/0.4 ML SQ SCH (21:13)
[2019-08-10] MEDS: VANCOMYCIN 1,200 MG in SODIUM CHLORIDE 0.9% 250 ML IV SCH ×3 (02:22→18:09)
[2019-08-10 02:27] VITALS: BP 111/65
[2019-08-10] MEDS: CEFEPIME 2 GM in DEXTROSE 5% 100 ML IV SCH ×3 (04:10→22:21)
[2019-08-10 04:49] LABS: ANION GAP 4 mmol/L (5-15); CALCIUM 8.4 mg/dL (8.5-10.1); CHLORIDE 100 mmol/L (98-107); CREATININE 0.54 mg/dL (0.7-1.3)
[2019-08-10 04:58] LABS: MEAN CORPUSCULAR HEMOGLOBIN 26.3 pg (27.5-34.5); MEAN CORPUSCULAR HGB CONC 32.7 g/dL (33.2-36.2); MEAN CORPUSCULAR VOLUME 80.3 fL (81-97); MEAN PLATELET VOLUME 7.1 fL (7.4-10.4); PLATELET COUNT 751 x10^3/uL (130-400); RED BLOOD COUNT 2.76 x10^6/uL (4.38-5.82)
[2019-08-10 05:40] LABS: MD YES
[2019-08-10 05:41] LABS: <PLATELET ESTIMATE> INCREASED; <PLT MORPHOLOGY> NORMAL PLT MORPH; ANISOCYTOSIS 1+; BAND#(MANUAL) 0.43 x10^3/uL; BANDS%(MANUAL) 2 % (0-7); EOS#(MANUAL) 0.22 x10^3/uL (0.0-0.4); EOS% (MANUAL) 1 % (1-7); HYPOCHROMIA 1+; LYMPH#(MANUAL) 1.73 x10^3/uL (1-3.4); LYMPHS% (MANUAL) 8 % (22-44); METAMYELOCYTES# (MANUAL) 0.22 x10^3/uL (0-0); METAMYELOCYTES% (MANUAL) 1 % (0-1); MONOS#(MANUAL) 1.51 x10^3/uL (0.3-2.7); MONOS% (MANUAL) 7 % (2-9); POLYCHROMASIA 1+; SEGS% (MANUAL) 81 % (42-75)
[2019-08-10] MEDS: HYDROcodone/APAP 10/325 MG TABLET PO PRN ×4 (05:46→22:11)
[2019-08-10] MEDS: MULTIVITAMIN 1 TABLET PO SCH (08:04)
[2019-08-10] MEDS: THIAMINE 100MG TABLET PO SCH (08:04)
[2019-08-10] MEDS: FUROSEMIDE 20 MG/2 ML IV SCH ×2 (08:04→18:08)
[2019-08-10] MEDS: FOLIC ACID 1 MG TABLET PO SCH (08:04)
[2019-08-10] MEDS: GUAIFENESIN ER 600 MG TABLET PO SCH ×2 (08:04→22:11)
[2019-08-10] MEDS: POTASSIUM CHLORIDE 20 MEQ TAB.ER.PRT PO SCH ×2 (08:05→17:00)
[2019-08-10 08:09] VITALS: BP 106/62
[2019-08-10 09:32] LABS: HEMOGRAM NOTE RECHECKED
[2019-08-10 14:10] VITALS: BP 123/69
[2019-08-10] MEDS: BENZONATATE 100 MG CAPSULE PO PRN ×2 (18:09→22:11)
[2019-08-10 18:34] VITALS: BP 114/69
[2019-08-10] MEDS: FAMOTIDINE 20 MG TABLET PO SCH (22:11)
[2019-08-10] MEDS: ENOXAPARIN 40 MG/0.4 ML SQ SCH (22:11)
[2019-08-11 01:02] VITALS: BP 122/72
[2019-08-11] MEDS: VANCOMYCIN 1,200 MG in SODIUM CHLORIDE 0.9% 250 ML IV SCH ×3 (02:24→21:54)
[2019-08-11] MEDS: CEFEPIME 2 GM in DEXTROSE 5% 100 ML IV SCH ×4 (05:41→23:47)
[2019-08-11 06:23] VITALS: BP 143/79
[2019-08-11 06:24] LABS: ANION GAP 5 mmol/L (5-15); CALCIUM 8.4 mg/dL (8.5-10.1); CHLORIDE 97 mmol/L (98-107); MEAN CORPUSCULAR HEMOGLOBIN 26.1 pg (27.5-34.5); MEAN CORPUSCULAR HGB CONC 32.4 g/dL (33.2-36.2); MEAN CORPUSCULAR VOLUME 80.5 fL (81-97); MEAN PLATELET VOLUME 7.2 fL (7.4-10.4); PLATELET COUNT 929 x10^3/uL (130-400); RED CELL DISTRIBUTION WIDTH 16.9 % (9.4-14.8)
[2019-08-11] MEDS: HYDROcodone/APAP 10/325 MG TABLET PO PRN ×3 (06:32→19:23)
[2019-08-11 06:39] LABS: MD YES
[2019-08-11 07:29] LABS: <PLATELET ESTIMATE> INCREASED; ANISOCYTOSIS 1+; BAND#(MANUAL) 0.48 x10^3/uL; BANDS%(MANUAL) 2 % (0-7); HYPOCHROMIA 1+; LYMPH#(MANUAL) 3.35 x10^3/uL (1-3.4); LYMPHS% (MANUAL) 14 % (22-44); MONOS#(MANUAL) 0.96 x10^3/uL (0.3-2.7); MONOS% (MANUAL) 4 % (2-9); SEG#(MANUAL) 19.12 x10^3/uL (1.8-6.8); SEGS% (MANUAL) 80 % (42-75)
[2019-08-11 07:30] LABS: <PLT MORPHOLOGY> NORMAL PLT MORPH; MICROCYTOSIS 1+
[2019-08-11] MEDS: POTASSIUM CHLORIDE 20 MEQ TAB.ER.PRT PO SCH ×4 (08:00→16:40)
[2019-08-11] MEDS: MULTIVITAMIN 1 TABLET PO SCH (09:53)
[2019-08-11] MEDS: FOLIC ACID 1 MG TABLET PO SCH (09:53)
[2019-08-11] MEDS: THIAMINE 100MG TABLET PO SCH (09:53)
[2019-08-11] MEDS: FAMOTIDINE 20 MG TABLET PO SCH ×2 (09:53→21:00)
[2019-08-11] MEDS: GUAIFENESIN ER 600 MG TABLET PO SCH ×2 (09:54→21:48)
[2019-08-11] MEDS: FUROSEMIDE 20 MG/2 ML IV SCH ×2 (09:54→16:38)
[2019-08-11 12:50] VITALS: BP 107/61
[2019-08-11 17:40] LABS: % IRON SATURATION 6 % (20-55); IRON LEVEL 8 mcg/dL (65-175); TOTAL IRON BINDING CAPACITY 125 mcg/dL (250-450)
[2019-08-11 20:36] VITALS: BP 104/57
[2019-08-11] MEDS: ENOXAPARIN 40 MG/0.4 ML SQ SCH (21:49)
[2019-08-12 01:02] VITALS: BP 116/66
[2019-08-12] MEDS: BENZONATATE 100 MG CAPSULE PO PRN ×2 (04:29→22:11)
[2019-08-12] MEDS: HYDROcodone/APAP 10/325 MG TABLET PO PRN ×3 (04:30→23:14)
[2019-08-12] MEDS: VANCOMYCIN 1,200 MG in SODIUM CHLORIDE 0.9% 250 ML IV SCH ×3 (06:09→22:11)
[2019-08-12 06:24] LABS: ANION GAP 8 mmol/L (5-15); CALCIUM 8.3 mg/dL (8.5-10.1); CHLORIDE 97 mmol/L (98-107)
[2019-08-12 06:25] LABS: MEAN CORPUSCULAR HEMOGLOBIN 25.9 pg (27.5-34.5); MEAN PLATELET VOLUME 6.9 fL (7.4-10.4); PLATELET COUNT 900 x10^3/uL (130-400); RED BLOOD COUNT 2.87 x10^6/uL (4.38-5.82); RED CELL DISTRIBUTION WIDTH 16.9 % (9.4-14.8)
[2019-08-12 06:26] LABS: CREATININE 0.48 mg/dL (0.7-1.3)
[2019-08-12 06:45] LABS: MD YES
[2019-08-12 06:46] LABS: ANISOCYTOSIS 1+; BANDS%(MANUAL) 2 % (0-7); HYPOCHROMIA 1+; LYMPH#(MANUAL) 0.99 x10^3/uL (1-3.4); LYMPHS% (MANUAL) 4 % (22-44); METAMYELOCYTES# (MANUAL) 0.25 x10^3/uL (0-0); METAMYELOCYTES% (MANUAL) 1 % (0-1); MICROCYTOSIS 1+; MONOS#(MANUAL) 1.98 x10^3/uL (0.3-2.7); MONOS% (MANUAL) 8 % (2-9); MYELOCYTES# (MANUAL) 0.25 x10^3/uL (0-0); MYELOCYTES% (MANUAL) 1 % (0-0); SEG#(MANUAL) 20.83 x10^3/uL (1.8-6.8); SEGS% (MANUAL) 84 % (42-75)
[2019-08-12 06:47] LABS: <PLATELET ESTIMATE> INCREASED; <PLT MORPHOLOGY> NORMAL PLT MORPH; POLYCHROMASIA 1+
[2019-08-12 07:15] VITALS: BP 99/61
[2019-08-12] MEDS: THIAMINE 100MG TABLET PO SCH (08:05)
[2019-08-12] MEDS: GUAIFENESIN ER 600 MG TABLET PO SCH ×2 (08:05→22:11)
[2019-08-12] MEDS: POTASSIUM CHLORIDE 20 MEQ TAB.ER.PRT PO SCH ×2 (08:05→22:16)
[2019-08-12] MEDS: MULTIVITAMIN 1 TABLET PO SCH (08:05)
[2019-08-12] MEDS: CEFEPIME 2 GM in DEXTROSE 5% 100 ML IV SCH ×2 (08:05→16:07)
[2019-08-12] MEDS: FUROSEMIDE 20 MG/2 ML IV SCH ×2 (08:05→22:12)
[2019-08-12] MEDS: FOLIC ACID 1 MG TABLET PO SCH (08:06)
[2019-08-12] MEDS: FAMOTIDINE 20 MG TABLET PO SCH ×2 (08:06→22:11)
[2019-08-12 13:11] VITALS: BP 105/65
[2019-08-12] MEDS ORDERED: MIDAZOLAM 1 MG/ML, 2ML ONE (16:31)
[2019-08-12] MEDS ORDERED: FENTANYL PF 100 MCG/2ML ONE ×6 (16:31→19:26)
[2019-08-12] MEDS ORDERED: BUPIVACAINE/PF-EPI 0.5% 1:200K ONE (16:34)
[2019-08-12] MEDS ORDERED: LABETALOL 5MG/ML, 20ML IV PRN (18:30)
[2019-08-12] MEDS ORDERED: MEPERIDINE/PF 25MG/0.5ML IVPush PRN (18:30)
[2019-08-12] MEDS ORDERED: HYDROmorphone 2 MG/ML, 1ML IVPush PRN (18:30)
[2019-08-12] MEDS ORDERED: ACETAMINOPHEN 325 MG TABLET PO PRN (18:30)
[2019-08-12] MEDS ORDERED: OXYcodone 5 MG/5 ML ORAL.SOL UDC PO PRN (18:30)
[2019-08-12] MEDS ORDERED: KETOROLAC 30 MG/1 ML IV PRN (18:30)
[2019-08-12] MEDS ORDERED: DIAZEPAM 5 MG/ML, 2ML IVPush PRN (18:30)
[2019-08-12] MEDS ORDERED: PROMETHAZINE 25 MG/ML, 1ML IV PRN (18:30)
[2019-08-12] MEDS ORDERED: hydrALAzine 20 MG/ML, 1ML IV PRN (18:30)
[2019-08-12] MEDS ORDERED: ALBUTEROL SULFATE 2.5 MG/3 ML NPPB PRN (18:30)
[2019-08-12] MEDS ORDERED: SUCCINYLCHOLINE 20 MG/ML, 10ML ONE (18:44)
[2019-08-12] MEDS ORDERED: ONDANSETRON 2MG/ML, 2ML ONE (18:44)
[2019-08-12] MEDS ORDERED: PROPOFOL 10 MG/ML, 20ML ONE (18:44)
[2019-08-12] MEDS ORDERED: NEOSTIGMINE 1 MG/ML, 10ML ONE (18:44)
[2019-08-12] MEDS ORDERED: CEFAZOLIN 1,000 MG ONE (18:44)
[2019-08-12] MEDS ORDERED: ROCURONIUM 10MG/ML,5ML ONE (18:44)
[2019-08-12] MEDS ORDERED: GLYCOPYRROLATE 0.2MG/1ML, 5ML ONE (18:44)
[2019-08-12] MEDS ORDERED: SUGAMMADEX 200 MG/2 ML IVPush ONE (18:44)
[2019-08-12] MEDS ORDERED: DEXAMETHASONE 4 MG/ML, 1ML ONE (18:44)
[2019-08-12] MEDS ORDERED: MORPHINE SULFATE 4 MG/ML, 1ML IVPush PRN (19:00)
[2019-08-12] MEDS: FENTANYL PF 100 MCG/2ML IV PRN ×2 (19:20→19:25)
[2019-08-12] MEDS ORDERED: OXYcodone 5 MG/5 ML ORAL.SOL UDC ONE (19:26)
[2019-08-12 20:30] VITALS: BP 112/68
[2019-08-12] MEDS: ENOXAPARIN 40 MG/0.4 ML SQ SCH (22:11)
[2019-08-13 00:15] VITALS: BP 101/58
[2019-08-13] MEDS: CEFEPIME 2 GM in DEXTROSE 5% 100 ML IV SCH ×3 (00:25→16:15)
[2019-08-13 02:35] VITALS: BP 123/73
[2019-08-13] MEDS ORDERED: MORPHINE SULFATE 4 MG/ML, 1ML IVPush PRN (03:00)
[2019-08-13] MEDS: HYDROcodone/APAP 10/325 MG TABLET PO PRN ×2 (03:15→08:18)
[2019-08-13] MEDS: VANCOMYCIN 1,200 MG in SODIUM CHLORIDE 0.9% 250 ML IV SCH ×3 (05:42→22:07)
[2019-08-13 07:47] VITALS: BP 101/60
[2019-08-13] MEDS: POTASSIUM CHLORIDE 20 MEQ TAB.ER.PRT PO SCH ×2 (08:00→16:16)
[2019-08-13] MEDS: MULTIVITAMIN 1 TABLET PO SCH (08:17)
[2019-08-13] MEDS: THIAMINE 100MG TABLET PO SCH (08:17)
[2019-08-13] MEDS: GUAIFENESIN ER 600 MG TABLET PO SCH ×2 (08:17→20:20)
[2019-08-13] MEDS: FOLIC ACID 1 MG TABLET PO SCH (08:17)
[2019-08-13] MEDS: FUROSEMIDE 20 MG/2 ML IV SCH ×2 (08:17→16:15)
[2019-08-13] MEDS: BENZONATATE 100 MG CAPSULE PO PRN ×2 (08:18→20:20)
[2019-08-13] MEDS: FAMOTIDINE 20 MG TABLET PO SCH ×2 (08:18→20:20)
[2019-08-13] MEDS ORDERED: KETOROLAC 30 MG/1 ML IVPush PRN (10:00)
[2019-08-13] MEDS: OXYcodone IR 5MG TABLET PO PRN ×3 (10:22→20:20)
[2019-08-13 12:32] VITALS: BP 105/60
[2019-08-13 18:27] VITALS: BP 110/63
[2019-08-13] MEDS: ENOXAPARIN 40 MG/0.4 ML SQ SCH (20:20)
[2019-08-14 00:30] VITALS: BP 120/69
[2019-08-14] MEDS: OXYcodone IR 5MG TABLET PO PRN ×6 (00:33→22:14)
[2019-08-14] MEDS: CEFEPIME 2 GM in DEXTROSE 5% 100 ML IV SCH ×3 (00:33→16:58)
[2019-08-14] MEDS: BENZONATATE 100 MG CAPSULE PO PRN (05:37)
[2019-08-14] MEDS: VANCOMYCIN 1,200 MG in SODIUM CHLORIDE 0.9% 250 ML IV SCH ×3 (05:39→22:00)
[2019-08-14 06:19] LABS: CHLORIDE 101 mmol/L (98-107)
[2019-08-14 06:25] LABS: ALANINE AMINOTRANSFERASE 87 U/L (12-78); ALBUMIN 1.5 g/dL (3.4-5.0); ALKALINE PHOSPHATASE 150 U/L (45-117); ANION GAP 4 mmol/L (5-15); BILIRUBIN,TOTAL 0.5 mg/dL (0.2-1.0); CALCIUM 8.3 mg/dL (8.5-10.1); CREATININE 0.46 mg/dL (0.7-1.3); TOTAL PROTEIN 6.7 g/dL (6.4-8.2)
[2019-08-14 06:49] VITALS: BP 97/59
[2019-08-14 06:52] LABS: MEAN CORPUSCULAR HEMOGLOBIN 26.3 pg (27.5-34.5); MEAN CORPUSCULAR HGB CONC 32.7 g/dL (33.2-36.2); MEAN CORPUSCULAR VOLUME 80.3 fL (81-97); PLATELET COUNT 971 x10^3/uL (130-400); RED BLOOD COUNT 2.68 x10^6/uL (4.38-5.82); RED CELL DISTRIBUTION WIDTH 16.7 % (9.4-14.8)
[2019-08-14 08:01] LABS: MD YES
[2019-08-14 08:02] LABS: <PLATELET ESTIMATE> INCREASED; <PLT MORPHOLOGY> NORMAL PLT MORPH; ANISOCYTOSIS 1+; HYPOCHROMIA 1+; LYMPH#(MANUAL) 2.86 x10^3/uL (1-3.4); LYMPHS% (MANUAL) 18 % (22-44); MICROCYTOSIS 1+; MONOS#(MANUAL) 0.48 x10^3/uL (0.3-2.7); MONOS% (MANUAL) 3 % (2-9); MYELOCYTES# (MANUAL) 0.32 x10^3/uL (0-0); MYELOCYTES% (MANUAL) 2 % (0-0); POLYCHROMASIA 1+; SEG#(MANUAL) 12.24 x10^3/uL (1.8-6.8); SEGS% (MANUAL) 77 % (42-75)
[2019-08-14] MEDS: FOLIC ACID 1 MG TABLET PO SCH (09:03)
[2019-08-14] MEDS: POTASSIUM CHLORIDE 20 MEQ TAB.ER.PRT PO SCH ×2 (09:03→16:58)
[2019-08-14] MEDS: MULTIVITAMIN 1 TABLET PO SCH (09:03)
[2019-08-14] MEDS: FAMOTIDINE 20 MG TABLET PO SCH ×2 (09:03→21:59)
[2019-08-14] MEDS: THIAMINE 100MG TABLET PO SCH (09:04)
[2019-08-14] MEDS: GUAIFENESIN ER 600 MG TABLET PO SCH ×2 (09:04→21:59)
[2019-08-14 13:48] VITALS: BP 112/68
[2019-08-14] MEDS: MORPHINE SULFATE 4 MG/ML, 1ML IVPush PRN (14:20)
[2019-08-14] MEDS ORDERED: BISACODYL 10 MG SUPP PR PRN (15:00)
[2019-08-14] MEDS ORDERED: POLYETHYLENE GLYCOL 17 GM PACKET PO PRN (15:00)
[2019-08-14] MEDS: SENNA/DOCUSATE TABLET PO SCH (15:33)
[2019-08-14] MEDS ORDERED: CALCIUM CARBONATE 500 MG TAB.CHEW PO PRN (18:30)
[2019-08-14 18:46] VITALS: BP 111/64
[2019-08-15] MEDS: CEFEPIME 2 GM in DEXTROSE 5% 100 ML IV SCH ×3 (00:41→17:01)
[2019-08-15] MEDS: MORPHINE SULFATE 4 MG/ML, 1ML IVPush PRN ×6 (00:50→23:29)
[2019-08-15 00:51] VITALS: BP 120/61
[2019-08-15] MEDS: OXYcodone IR 5MG TABLET PO PRN ×4 (04:24→20:23)
[2019-08-15] MEDS: ASPIRIN 81 MG TABLET EC PO SCH (06:02)
[2019-08-15] MEDS: VANCOMYCIN 1,200 MG in SODIUM CHLORIDE 0.9% 250 ML IV SCH ×2 (06:04→14:41)
[2019-08-15 06:51] LABS: MD YES; MEAN CORPUSCULAR HEMOGLOBIN 25.7 pg (27.5-34.5); MEAN CORPUSCULAR HGB CONC 31.9 g/dL (33.2-36.2); MEAN CORPUSCULAR VOLUME 80.4 fL (81-97); RED CELL DISTRIBUTION WIDTH 16.4 % (9.4-14.8)
[2019-08-15 06:53] LABS: PLATELET COUNT 1162 x10^3/uL (130-400)
[2019-08-15 06:59] LABS: ALBUMIN 1.7 g/dL (3.4-5.0); ANION GAP 6 mmol/L (5-15); CHLORIDE 93 mmol/L (98-107)
[2019-08-15 07:04] LABS: ALANINE AMINOTRANSFERASE 136 U/L (12-78); ALKALINE PHOSPHATASE 222 U/L (45-117); BILIRUBIN,TOTAL 0.3 mg/dL (0.2-1.0); CREATININE 0.54 mg/dL (0.7-1.3); TOTAL PROTEIN 7.5 g/dL (6.4-8.2)
[2019-08-15 07:16] LABS: ANISOCYTOSIS 1+; BAND#(MANUAL) 0.45 x10^3/uL; BANDS%(MANUAL) 3 % (0-7); EOS#(MANUAL) 0.45 x10^3/uL (0.0-0.4); EOS% (MANUAL) 3 % (1-7); HYPOCHROMIA 1+; LYMPH#(MANUAL) 3.43 x10^3/uL (1-3.4); LYMPHS% (MANUAL) 23 % (22-44); METAMYELOCYTES# (MANUAL) 0.75 x10^3/uL (0-0); METAMYELOCYTES% (MANUAL) 5 % (0-1); MICROCYTOSIS 1+; MONOS#(MANUAL) 0.89 x10^3/uL (0.3-2.7); MONOS% (MANUAL) 6 % (2-9); MYELOCYTES# (MANUAL) 0.45 x10^3/uL (0-0); MYELOCYTES% (MANUAL) 3 % (0-0); SEG#(MANUAL) 8.49 x10^3/uL (1.8-6.8); SEGS% (MANUAL) 57 % (42-75)
[2019-08-15 07:17] LABS: <PLATELET ESTIMATE> INCREASED; <PLT MORPHOLOGY> NORMAL PLT MORPH; POLYCHROMASIA 1+
[2019-08-15 08:04] VITALS: BP 127/67
[2019-08-15 09:11] LABS: MEAN CORPUSCULAR HEMOGLOBIN 26.3 pg (27.5-34.5); MEAN CORPUSCULAR HGB CONC 32.7 g/dL (33.2-36.2); MEAN CORPUSCULAR VOLUME 80.4 fL (81-97); RED BLOOD COUNT 3.25 x10^6/uL (4.38-5.82); RED CELL DISTRIBUTION WIDTH 16.4 % (9.4-14.8)
[2019-08-15 09:13] LABS: MD YES
[2019-08-15 09:14] LABS: MEAN PLATELET VOLUME 6.5 fL (7.4-10.4)
[2019-08-15] MEDS: SENNA/DOCUSATE TABLET PO SCH (09:15)
[2019-08-15 09:16] LABS: BAND#(MANUAL) 0.34 x10^3/uL; BANDS%(MANUAL) 2 % (0-7); EOS#(MANUAL) 0.34 x10^3/uL (0.0-0.4); EOS% (MANUAL) 2 % (1-7); LYMPH#(MANUAL) 3.06 x10^3/uL (1-3.4); LYMPHS% (MANUAL) 18 % (22-44); METAMYELOCYTES# (MANUAL) 0.34 x10^3/uL (0-0); METAMYELOCYTES% (MANUAL) 2 % (0-1); MONOS#(MANUAL) 1.02 x10^3/uL (0.3-2.7); MONOS% (MANUAL) 6 % (2-9); MYELOCYTES# (MANUAL) 0.51 x10^3/uL (0-0); MYELOCYTES% (MANUAL) 3 % (0-0); SEG#(MANUAL) 11.39 x10^3/uL (1.8-6.8); SEGS% (MANUAL) 67 % (42-75)
[2019-08-15] MEDS: THIAMINE 100MG TABLET PO SCH (09:16)
[2019-08-15] MEDS: MULTIVITAMIN 1 TABLET PO SCH (09:16)
[2019-08-15] MEDS: FAMOTIDINE 20 MG TABLET PO SCH ×2 (09:16→20:22)
[2019-08-15] MEDS: FOLIC ACID 1 MG TABLET PO SCH (09:16)
[2019-08-15 09:17] LABS: ANISOCYTOSIS 1+; HYPOCHROMIA 1+; MICROCYTOSIS 1+; POLYCHROMASIA 1+
[2019-08-15] MEDS: GUAIFENESIN ER 600 MG TABLET PO SCH ×2 (09:17→20:22)
[2019-08-15] MEDS: POTASSIUM CHLORIDE 20 MEQ TAB.ER.PRT PO SCH ×2 (09:17→17:47)
[2019-08-15 09:18] LABS: <PLATELET ESTIMATE> INCREASED; <PLT MORPHOLOGY> NORMAL PLT MORPH
[2019-08-15 09:22] LABS: PLATELET COUNT 1145 x10^3/uL (130-400)
[2019-08-15] MEDS: ENOXAPARIN 40 MG/0.4 ML SQ SCH (10:32)
[2019-08-15] MEDS: OMEPRAZOLE 20 MG CAPSULE.DR PO SCH (11:21)
[2019-08-15 13:36] VITALS: BP 124/70
[2019-08-15] MEDS: AMPICILLIN/SULBACTAM 3 GM in SODIUM CHLORIDE 0.9% 100 ML IV SCH ×2 (18:12→23:32)
[2019-08-15 20:04] VITALS: BP 115/72
[2019-08-16 00:42] VITALS: BP 117/73
[2019-08-16] MEDS: OXYcodone IR 5MG TABLET PO PRN ×4 (03:26→20:14)
[2019-08-16] MEDS: AMPICILLIN/SULBACTAM 3 GM in SODIUM CHLORIDE 0.9% 100 ML IV SCH ×3 (05:55→20:14)
[2019-08-16] MEDS: ASPIRIN 81 MG TABLET EC PO SCH (05:55)
[2019-08-16] MEDS: MORPHINE SULFATE 4 MG/ML, 1ML IVPush PRN ×2 (05:55→11:54)
[2019-08-16] MEDS: OMEPRAZOLE 20 MG CAPSULE.DR PO SCH (05:55)
[2019-08-16 06:29] LABS: MEAN CORPUSCULAR HEMOGLOBIN 26.2 pg (27.5-34.5); MEAN CORPUSCULAR HGB CONC 32.4 g/dL (33.2-36.2); MEAN CORPUSCULAR VOLUME 80.9 fL (81-97); MEAN PLATELET VOLUME 6.4 fL (7.4-10.4); RED BLOOD COUNT 3.23 x10^6/uL (4.38-5.82); RED CELL DISTRIBUTION WIDTH 16.7 % (9.4-14.8)
[2019-08-16 06:35] LABS: ALANINE AMINOTRANSFERASE 80 U/L (12-78); ALBUMIN 1.6 g/dL (3.4-5.0); ANION GAP 7 mmol/L (5-15); CALCIUM 8.5 mg/dL (8.5-10.1); CHLORIDE 97 mmol/L (98-107)
[2019-08-16 06:38] LABS: PLATELET COUNT 1055 x10^3/uL (130-400)
[2019-08-16 06:38] LABS: ALKALINE PHOSPHATASE 215 U/L (45-117); BILIRUBIN,TOTAL 0.3 mg/dL (0.2-1.0); TOTAL PROTEIN 7.3 g/dL (6.4-8.2)
[2019-08-16 06:58] LABS: MD YES
[2019-08-16 07:00] LABS: BANDS%(MANUAL) 4 % (0-7); EOS% (MANUAL) 2 % (1-7); LYMPHS% (MANUAL) 12 % (22-44); METAMYELOCYTES# (MANUAL) 0.45 x10^3/uL (0-0); METAMYELOCYTES% (MANUAL) 3 % (0-1); MONOS#(MANUAL) 1.05 x10^3/uL (0.3-2.7); MONOS% (MANUAL) 7 % (2-9); MYELOCYTES% (MANUAL) 2 % (0-0); SEGS% (MANUAL) 70 % (42-75)
[2019-08-16 07:01] LABS: <PLATELET ESTIMATE> INCREASED; <PLT MORPHOLOGY> NORMAL PLT MORPH; ANISOCYTOSIS 1+; MICROCYTOSIS 1+; POLYCHROMASIA 1+
[2019-08-16 07:25] VITALS: BP 104/66
[2019-08-16] MEDS: POTASSIUM CHLORIDE 20 MEQ TAB.ER.PRT PO SCH ×2 (08:05→20:14)
[2019-08-16] MEDS: SENNA/DOCUSATE TABLET PO SCH (08:05)
[2019-08-16] MEDS: THIAMINE 100MG TABLET PO SCH (08:05)
[2019-08-16] MEDS: MULTIVITAMIN 1 TABLET PO SCH (08:06)
[2019-08-16] MEDS: FOLIC ACID 1 MG TABLET PO SCH (08:06)
[2019-08-16] MEDS: FAMOTIDINE 20 MG TABLET PO SCH ×2 (08:06→20:14)
[2019-08-16] MEDS: GUAIFENESIN ER 600 MG TABLET PO SCH ×2 (08:06→20:15)
--- NOTE | 2019-08-16 09:53 | NUR ---
REC: d/c to inpatient alcohol rehab facility; no further [employer] indicated Addendum: 08/16/19 at 0953 by Ida RESENDEZ Amended: Links added.
[2019-08-16] MEDS: ENOXAPARIN 40 MG/0.4 ML SQ SCH (11:54)
[2019-08-16 12:40] VITALS: BP 111/68
[2019-08-16 20:36] VITALS: BP 123/73
[2019-08-17] MEDS: OXYcodone IR 5MG TABLET PO PRN ×5 (00:17→22:20)
[2019-08-17 01:27] VITALS: BP 118/70
[2019-08-17] MEDS: AMPICILLIN/SULBACTAM 3 GM in SODIUM CHLORIDE 0.9% 100 ML IV SCH ×4 (02:06→20:02)
[2019-08-17] MEDS: ASPIRIN 81 MG TABLET EC PO SCH (05:50)
[2019-08-17] MEDS: OMEPRAZOLE 20 MG CAPSULE.DR PO SCH (05:50)
[2019-08-17 06:18] LABS: MEAN CORPUSCULAR HEMOGLOBIN 25.8 pg (27.5-34.5); MEAN CORPUSCULAR HGB CONC 31.8 g/dL (33.2-36.2); MEAN CORPUSCULAR VOLUME 81.1 fL (81-97); MEAN PLATELET VOLUME 6.1 fL (7.4-10.4); RED BLOOD COUNT 3.18 x10^6/uL (4.38-5.82)
[2019-08-17 06:20] LABS: PLATELET COUNT 1077 x10^3/uL (130-400)
[2019-08-17 06:29] LABS: ALANINE AMINOTRANSFERASE 65 U/L (12-78); ALBUMIN 1.6 g/dL (3.4-5.0); ANION GAP 4 mmol/L (5-15); CALCIUM 8.6 mg/dL (8.5-10.1); CHLORIDE 99 mmol/L (98-107); CREATININE 0.43 mg/dL (0.7-1.3)
[2019-08-17 06:31] LABS: ALKALINE PHOSPHATASE 186 U/L (45-117); BILIRUBIN,TOTAL 0.2 mg/dL (0.2-1.0); TOTAL PROTEIN 7.1 g/dL (6.4-8.2)
[2019-08-17 07:07] VITALS: BP 108/69
[2019-08-17 07:48] LABS: MD YES
[2019-08-17 07:50] LABS: <PLATELET ESTIMATE> INCREASED; <PLT MORPHOLOGY> NORMAL PLT MORPH; ANISOCYTOSIS 1+; BAND#(MANUAL) 0.14 x10^3/uL; BANDS%(MANUAL) 1 % (0-7); EOS#(MANUAL) 0.41 x10^3/uL (0.0-0.4); EOS% (MANUAL) 3 % (1-7); LYMPH#(MANUAL) 2.57 x10^3/uL (1-3.4); LYMPHS% (MANUAL) 19 % (22-44); METAMYELOCYTES# (MANUAL) 0.27 x10^3/uL (0-0); METAMYELOCYTES% (MANUAL) 2 % (0-1); MICROCYTOSIS 1+; MONOS#(MANUAL) 0.68 x10^3/uL (0.3-2.7); MONOS% (MANUAL) 5 % (2-9); MYELOCYTES# (MANUAL) 0.54 x10^3/uL (0-0); MYELOCYTES% (MANUAL) 4 % (0-0); POLYCHROMASIA 1+; SEG#(MANUAL) 8.91 x10^3/uL (1.8-6.8); SEGS% (MANUAL) 66 % (42-75)
[2019-08-17 07:51] LABS: HYPOCHROMIA 1+
[2019-08-17] MEDS: POTASSIUM CHLORIDE 20 MEQ TAB.ER.PRT PO SCH ×2 (09:27→18:05)
[2019-08-17] MEDS: THIAMINE 100MG TABLET PO SCH (09:27)
[2019-08-17] MEDS: FOLIC ACID 1 MG TABLET PO SCH (09:27)
[2019-08-17] MEDS: MULTIVITAMIN 1 TABLET PO SCH (09:27)
[2019-08-17] MEDS: SENNA/DOCUSATE TABLET PO SCH (09:27)
[2019-08-17] MEDS: FAMOTIDINE 20 MG TABLET PO SCH ×2 (09:27→20:03)
[2019-08-17] MEDS: GUAIFENESIN ER 600 MG TABLET PO SCH ×2 (09:27→20:03)
[2019-08-17] MEDS: MORPHINE SULFATE 4 MG/ML, 1ML IVPush PRN ×2 (10:28→14:12)
[2019-08-17] MEDS: ENOXAPARIN 40 MG/0.4 ML SQ SCH (11:38)
[2019-08-17 13:02] VITALS: BP 121/78
[2019-08-17 19:26] VITALS: BP 120/75
[2019-08-18 00:37] VITALS: BP 118/73
[2019-08-18] MEDS: AMPICILLIN/SULBACTAM 3 GM in SODIUM CHLORIDE 0.9% 100 ML IV SCH ×4 (01:48→20:30)
[2019-08-18] MEDS: OMEPRAZOLE 20 MG CAPSULE.DR PO SCH (05:06)
[2019-08-18] MEDS: OXYcodone IR 5MG TABLET PO PRN ×5 (05:06→23:02)
[2019-08-18] MEDS: ASPIRIN 81 MG TABLET EC PO SCH (05:06)
[2019-08-18 07:06] LABS: MEAN CORPUSCULAR HEMOGLOBIN 25.9 pg (27.5-34.5); MEAN CORPUSCULAR HGB CONC 31.8 g/dL (33.2-36.2); MEAN CORPUSCULAR VOLUME 81.4 fL (81-97); MEAN PLATELET VOLUME 6.1 fL (7.4-10.4); PLATELET COUNT 985 x10^3/uL (130-400); RED BLOOD COUNT 3.18 x10^6/uL (4.38-5.82); RED CELL DISTRIBUTION WIDTH 16.8 % (9.4-14.8)
[2019-08-18 07:12] LABS: ANION GAP 7 mmol/L (5-15); CALCIUM 8.8 mg/dL (8.5-10.1); CHLORIDE 98 mmol/L (98-107); CREATININE 0.46 mg/dL (0.7-1.3)
[2019-08-18 07:33] VITALS: BP 110/63
[2019-08-18 07:34] LABS: MD YES
[2019-08-18 07:39] LABS: <PLATELET ESTIMATE> INCREASED; <PLT MORPHOLOGY> NORMAL PLT MORPH; ANISOCYTOSIS 1+; BAND#(MANUAL) 0.12 x10^3/uL; BANDS%(MANUAL) 1 % (0-7); EOS#(MANUAL) 0.59 x10^3/uL (0.0-0.4); EOS% (MANUAL) 5 % (1-7); HYPOCHROMIA 1+; LYMPH#(MANUAL) 1.89 x10^3/uL (1-3.4); LYMPHS% (MANUAL) 16 % (22-44); METAMYELOCYTES# (MANUAL) 0.35 x10^3/uL (0-0); METAMYELOCYTES% (MANUAL) 3 % (0-1); MICROCYTOSIS 1+; MONOS#(MANUAL) 0.71 x10^3/uL (0.3-2.7); MONOS% (MANUAL) 6 % (2-9); MYELOCYTES# (MANUAL) 0.59 x10^3/uL (0-0); MYELOCYTES% (MANUAL) 5 % (0-0); POLYCHROMASIA 1+; SEG#(MANUAL) 7.55 x10^3/uL (1.8-6.8); SEGS% (MANUAL) 64 % (42-75)
[2019-08-18] MEDS: SENNA/DOCUSATE TABLET PO SCH (08:18)
[2019-08-18] MEDS: THIAMINE 100MG TABLET PO SCH (08:19)
[2019-08-18] MEDS: FAMOTIDINE 20 MG TABLET PO SCH ×2 (08:22→20:30)
[2019-08-18] MEDS: POTASSIUM CHLORIDE 20 MEQ TAB.ER.PRT PO SCH ×2 (08:22→17:22)
[2019-08-18] MEDS: GUAIFENESIN ER 600 MG TABLET PO SCH ×2 (08:22→20:30)
[2019-08-18] MEDS: MULTIVITAMIN 1 TABLET PO SCH (08:22)
[2019-08-18] MEDS: FOLIC ACID 1 MG TABLET PO SCH (08:22)
[2019-08-18] MEDS: ENOXAPARIN 40 MG/0.4 ML SQ SCH (09:30)
[2019-08-18 14:25] VITALS: BP 125/78
[2019-08-18 20:53] VITALS: BP 119/71
[2019-08-19 01:28] VITALS: BP 115/70
[2019-08-19] MEDS: AMPICILLIN/SULBACTAM 3 GM in SODIUM CHLORIDE 0.9% 100 ML IV SCH ×4 (02:26→22:28)
[2019-08-19] MEDS: ASPIRIN 81 MG TABLET EC PO SCH (05:39)
[2019-08-19] MEDS: OMEPRAZOLE 20 MG CAPSULE.DR PO SCH (05:39)
[2019-08-19] MEDS: OXYcodone IR 5MG TABLET PO PRN ×4 (05:39→23:47)
[2019-08-19 06:27] LABS: CHLORIDE 98 mmol/L (98-107)
[2019-08-19 06:28] VITALS: BP 110/65
[2019-08-19 06:29] LABS: BASOPHILS # (AUTO) 0.04 x10^3/uL (0-0.1); BASOPHILS % (AUTO) 0 % (0-1); EOSINOPHILS # (AUTO) 0.31 x10^3/uL (0-0.4); EOSINOPHILS % (AUTO) 3 % (1-7); LYMPHOCYTES # (AUTO) 2.82 x10^3/uL (1-3.4); LYMPHOCYTES % (AUTO) 25 % (22-44); MD NO; MEAN CORPUSCULAR HEMOGLOBIN 25.7 pg (27.5-34.5); MEAN CORPUSCULAR VOLUME 80.5 fL (81-97); MEAN PLATELET VOLUME 6.7 fL (7.4-10.4); MONOCYTES # (AUTO) 1.13 x10^3/uL (0.2-0.8); MONOCYTES % (AUTO) 10 % (2-9); NEUTROPHILS # (AUTO) 6.95 x10^3/uL (1.8-6.8); NEUTROPHILS % (AUTO) 62 % (42-75); PLATELET COUNT 944 x10^3/uL (130-400); RED BLOOD COUNT 3.15 x10^6/uL (4.38-5.82); RED CELL DISTRIBUTION WIDTH 17.5 % (9.4-14.8)
[2019-08-19 06:33] LABS: HCT (SEDRATE) 25.9 % (39.2-51.8)
[2019-08-19 06:46] LABS: ALANINE AMINOTRANSFERASE 64 U/L (12-78); ALBUMIN 1.8 g/dL (3.4-5.0); ALKALINE PHOSPHATASE 164 U/L (45-117); ANION GAP 6 mmol/L (5-15); BILIRUBIN,TOTAL 0.3 mg/dL (0.2-1.0); CALCIUM 8.8 mg/dL (8.5-10.1); CREATININE 0.52 mg/dL (0.7-1.3); TOTAL PROTEIN 7.4 g/dL (6.4-8.2)
[2019-08-19 07:15] LABS: SEDIMENTATION RATE > 120 mm/hr (0-10)
[2019-08-19] MEDS: GUAIFENESIN ER 600 MG TABLET PO SCH ×2 (09:00→21:04)
[2019-08-19] MEDS: SENNA/DOCUSATE TABLET PO SCH (09:00)
[2019-08-19] MEDS: MULTIVITAMIN 1 TABLET PO SCH (10:25)
[2019-08-19] MEDS: THIAMINE 100MG TABLET PO SCH (10:25)
[2019-08-19] MEDS: FOLIC ACID 1 MG TABLET PO SCH (10:25)
[2019-08-19] MEDS: POTASSIUM CHLORIDE 20 MEQ TAB.ER.PRT PO SCH ×2 (10:25→17:38)
[2019-08-19] MEDS: FAMOTIDINE 20 MG TABLET PO SCH ×2 (10:26→21:04)
[2019-08-19] MEDS: ENOXAPARIN 40 MG/0.4 ML SQ SCH (10:27)
[2019-08-19 13:15] VITALS: BP 123/75
[2019-08-19 18:34] VITALS: BP 127/77
[2019-08-20 01:33] VITALS: BP 112/70
[2019-08-20] MEDS: AMPICILLIN/SULBACTAM 3 GM in SODIUM CHLORIDE 0.9% 100 ML IV SCH ×4 (04:26→23:06)
[2019-08-20] MEDS: OMEPRAZOLE 20 MG CAPSULE.DR PO SCH (06:02)
[2019-08-20] MEDS: ASPIRIN 81 MG TABLET EC PO SCH (06:02)
[2019-08-20] MEDS: OXYcodone IR 5MG TABLET PO PRN ×3 (06:03→21:03)
[2019-08-20 06:56] VITALS: BP 103/64
[2019-08-20] MEDS: FAMOTIDINE 20 MG TABLET PO SCH ×2 (08:19→21:03)
[2019-08-20] MEDS: POTASSIUM CHLORIDE 20 MEQ TAB.ER.PRT PO SCH ×2 (08:19→16:05)
[2019-08-20] MEDS: FOLIC ACID 1 MG TABLET PO SCH (08:20)
[2019-08-20] MEDS: MULTIVITAMIN 1 TABLET PO SCH (08:20)
[2019-08-20] MEDS: GUAIFENESIN ER 600 MG TABLET PO SCH ×2 (08:20→21:03)
[2019-08-20] MEDS: SENNA/DOCUSATE TABLET PO SCH (08:20)
[2019-08-20] MEDS: THIAMINE 100MG TABLET PO SCH (08:20)
[2019-08-20] MEDS: ENOXAPARIN 40 MG/0.4 ML SQ SCH (09:25)
[2019-08-20 13:13] VITALS: BP 124/77
[2019-08-20 20:23] VITALS: BP 128/78
[2019-08-20] MEDS ORDERED: OMNIPAQUE 350 MG/ML, 75ML BOTTLE ONE (22:48)
[2019-08-20] MEDS: MORPHINE SULFATE 4 MG/ML, 1ML IVPush PRN (23:07)
[2019-08-21 00:36] VITALS: BP 137/68
[2019-08-21] MEDS: OXYcodone IR 5MG TABLET PO PRN ×3 (03:50→20:31)
[2019-08-21] MEDS: AMPICILLIN/SULBACTAM 3 GM in SODIUM CHLORIDE 0.9% 100 ML IV SCH ×4 (05:34→23:19)
[2019-08-21] MEDS: ASPIRIN 81 MG TABLET EC PO SCH (05:35)
[2019-08-21] MEDS: OMEPRAZOLE 20 MG CAPSULE.DR PO SCH (05:35)
[2019-08-21] MEDS: ENOXAPARIN 40 MG/0.4 ML SQ SCH (07:36)
[2019-08-21 08:20] VITALS: BP 129/79
[2019-08-21] MEDS: MULTIVITAMIN 1 TABLET PO SCH (08:48)
[2019-08-21] MEDS: POTASSIUM CHLORIDE 20 MEQ TAB.ER.PRT PO SCH ×3 (08:48→16:53)
[2019-08-21] MEDS: THIAMINE 100MG TABLET PO SCH (08:49)
[2019-08-21] MEDS: FAMOTIDINE 20 MG TABLET PO SCH ×2 (08:49→20:30)
[2019-08-21] MEDS: GUAIFENESIN ER 600 MG TABLET PO SCH ×2 (08:49→20:30)
[2019-08-21] MEDS: SENNA/DOCUSATE TABLET PO SCH (08:49)
[2019-08-21] MEDS: FOLIC ACID 1 MG TABLET PO SCH (08:49)
[2019-08-21] MEDS ORDERED: OXYcodone 5 MG/5 ML ORAL.SOL UDC PO PRN (10:00)
[2019-08-21] MEDS ORDERED: EPHEDRINE 50 MG/ML, 1ML IVPush PRN (10:00)
[2019-08-21] MEDS ORDERED: ONDANSETRON 2MG/ML, 2ML IV PRN (10:00)
[2019-08-21] MEDS ORDERED: LABETALOL 5MG/ML, 20ML IV PRN (10:00)
[2019-08-21] MEDS ORDERED: hydrALAzine 20 MG/ML, 1ML IV PRN (10:00)
[2019-08-21] MEDS ORDERED: HYDROmorphone 2 MG/ML, 1ML IVPush PRN (10:00)
[2019-08-21] MEDS ORDERED: ACETAMINOPHEN 325 MG TABLET PO PRN (10:00)
[2019-08-21] MEDS ORDERED: PROMETHAZINE 25 MG/ML, 1ML IV PRN (10:00)
[2019-08-21 11:18] LABS: MEAN CORPUSCULAR HGB CONC 32.5 g/dL (33.2-36.2); MEAN CORPUSCULAR VOLUME 79.9 fL (81-97); MEAN PLATELET VOLUME 6.1 fL (7.4-10.4); PLATELET COUNT 875 x10^3/uL (130-400); RED BLOOD COUNT 3.35 x10^6/uL (4.38-5.82); RED CELL DISTRIBUTION WIDTH 17.9 % (9.4-14.8)
[2019-08-21 11:23] LABS: ANION GAP 8 mmol/L (5-15); CALCIUM 8.5 mg/dL (8.5-10.1); CHLORIDE 104 mmol/L (98-107); CREATININE 0.67 mg/dL (0.7-1.3)
[2019-08-21 12:24] LABS: MD YES
[2019-08-21 12:25] LABS: EOS#(MANUAL) 0.27 x10^3/uL (0.0-0.4); EOS% (MANUAL) 2 % (1-7); LYMPH#(MANUAL) 2.74 x10^3/uL (1-3.4); LYMPHS% (MANUAL) 20 % (22-44); METAMYELOCYTES# (MANUAL) 0.41 x10^3/uL (0-0); METAMYELOCYTES% (MANUAL) 3 % (0-1); MONOS#(MANUAL) 1.23 x10^3/uL (0.3-2.7); MONOS% (MANUAL) 9 % (2-9); MYELOCYTES# (MANUAL) 0.14 x10^3/uL (0-0); MYELOCYTES% (MANUAL) 1 % (0-0); SEG#(MANUAL) 8.91 x10^3/uL (1.8-6.8); SEGS% (MANUAL) 65 % (42-75)
[2019-08-21 12:26] LABS: <PLATELET ESTIMATE> INCREASED; <PLT MORPHOLOGY> NORMAL PLT MORPH; ANISOCYTOSIS 1+; HYPOCHROMIA 1+; MICROCYTOSIS 1+; POLYCHROMASIA 1+
[2019-08-21] MEDS ORDERED: DEXAMETHASONE 4 MG/ML, 1ML ONE (13:36)
[2019-08-21] MEDS ORDERED: SUCCINYLCHOLINE 20 MG/ML, 10ML ONE (13:36)
[2019-08-21] MEDS ORDERED: GLYCOPYRROLATE 0.2MG/1ML, 5ML ONE (13:36)
[2019-08-21] MEDS ORDERED: MIDAZOLAM 1 MG/ML, 2ML ONE (13:36)
[2019-08-21] MEDS ORDERED: CEFAZOLIN 1,000 MG ONE (13:36)
[2019-08-21] MEDS ORDERED: NEOSTIGMINE 1 MG/ML, 10ML ONE (13:36)
[2019-08-21] MEDS ORDERED: ROCURONIUM 10MG/ML,5ML ONE (13:36)
[2019-08-21] MEDS ORDERED: FENTANYL PF 100 MCG/2ML ONE ×4 (13:36→15:25)
[2019-08-21] MEDS ORDERED: ONDANSETRON 2MG/ML, 2ML ONE (13:36)
[2019-08-21] MEDS ORDERED: PROPOFOL 10 MG/ML, 20ML ONE (13:36)
[2019-08-21] MEDS ORDERED: BUPIVACAINE/PF-EPI 0.5% 1:200K ONE (13:48)
[2019-08-21] MEDS ORDERED: KETOROLAC 30 MG/1 ML ONE (14:12)
[2019-08-21] MEDS: FENTANYL PF 100 MCG/2ML IV PRN ×3 (15:25→15:35)
[2019-08-21] MEDS ORDERED: MEPERIDINE/PF 25MG/ML,1ML ONE ×2 (15:49→16:00)
[2019-08-21] MEDS: MEPERIDINE/PF 25MG/ML,1ML IVPush PRN ×2 (15:50→16:00)
[2019-08-21] MEDS ORDERED: OXYcodone 5 MG/5 ML ORAL.SOL UDC ONE (16:52)
[2019-08-21] MEDS: BENZONATATE 100 MG CAPSULE PO PRN (16:54)
[2019-08-21] MEDS: MORPHINE SULFATE 4 MG/ML, 1ML IVPush PRN ×2 (17:37→23:49)
[2019-08-21 18:46] VITALS: BP 108/61
[2019-08-22 00:19] VITALS: BP 119/73
[2019-08-22] MEDS: OXYcodone IR 5MG TABLET PO PRN ×4 (02:47→19:46)
[2019-08-22] MEDS: AMPICILLIN/SULBACTAM 3 GM in SODIUM CHLORIDE 0.9% 100 ML IV SCH ×4 (05:14→23:06)
[2019-08-22] MEDS: ASPIRIN 81 MG TABLET EC PO SCH (05:15)
[2019-08-22] MEDS: MORPHINE SULFATE 4 MG/ML, 1ML IVPush PRN ×3 (05:15→22:18)
[2019-08-22] MEDS: OMEPRAZOLE 20 MG CAPSULE.DR PO SCH (05:15)
[2019-08-22 06:07] LABS: BASOPHILS # (AUTO) 0.04 x10^3/uL (0-0.1); BASOPHILS % (AUTO) 0 % (0-1); EOSINOPHILS # (AUTO) 0.08 x10^3/uL (0-0.4); EOSINOPHILS % (AUTO) 1 % (1-7); LYMPHOCYTES # (AUTO) 2.19 x10^3/uL (1-3.4); LYMPHOCYTES % (AUTO) 15 % (22-44); MD NO; MEAN CORPUSCULAR HEMOGLOBIN 25.7 pg (27.5-34.5); MEAN CORPUSCULAR VOLUME 80.3 fL (81-97); MEAN PLATELET VOLUME 6.7 fL (7.4-10.4); MONOCYTES # (AUTO) 0.83 x10^3/uL (0.2-0.8); MONOCYTES % (AUTO) 6 % (2-9); NEUTROPHILS # (AUTO) 11.11 x10^3/uL (1.8-6.8); NEUTROPHILS % (AUTO) 78 % (42-75); PLATELET COUNT 809 x10^3/uL (130-400); RED BLOOD COUNT 3.39 x10^6/uL (4.38-5.82)
[2019-08-22 06:11] LABS: CHLORIDE 104 mmol/L (98-107)
[2019-08-22 06:25] LABS: ANION GAP 9 mmol/L (5-15); CALCIUM 9.2 mg/dL (8.5-10.1); CREATININE 0.67 mg/dL (0.7-1.3)
[2019-08-22 07:24] VITALS: BP 134/80
[2019-08-22] MEDS: SENNA/DOCUSATE TABLET PO SCH (09:00)
[2019-08-22] MEDS: POTASSIUM CHLORIDE 20 MEQ TAB.ER.PRT PO SCH ×2 (09:35→17:32)
[2019-08-22] MEDS: GUAIFENESIN ER 600 MG TABLET PO SCH ×2 (09:36→19:46)
[2019-08-22] MEDS: THIAMINE 100MG TABLET PO SCH (09:37)
[2019-08-22] MEDS: MULTIVITAMIN 1 TABLET PO SCH (09:37)
[2019-08-22] MEDS: FAMOTIDINE 20 MG TABLET PO SCH ×2 (09:38→19:46)
[2019-08-22] MEDS: FOLIC ACID 1 MG TABLET PO SCH (09:38)
[2019-08-22] MEDS: ENOXAPARIN 40 MG/0.4 ML SQ SCH (09:41)
[2019-08-22 13:50] VITALS: BP 131/77
[2019-08-22 20:54] VITALS: BP 122/74
[2019-08-23] MEDS: OXYcodone IR 5MG TABLET PO PRN ×5 (00:27→22:33)
[2019-08-23 01:20] VITALS: BP 120/75
[2019-08-23] MEDS: MORPHINE SULFATE 4 MG/ML, 1ML IVPush PRN ×3 (02:53→23:43)
[2019-08-23] MEDS: AMPICILLIN/SULBACTAM 3 GM in SODIUM CHLORIDE 0.9% 100 ML IV SCH ×4 (05:28→22:30)
[2019-08-23] MEDS: OMEPRAZOLE 20 MG CAPSULE.DR PO SCH (05:28)
[2019-08-23] MEDS: ASPIRIN 81 MG TABLET EC PO SCH (05:28)
[2019-08-23 05:35] LABS: BASOPHILS # (AUTO) 0.09 x10^3/uL (0-0.1); BASOPHILS % (AUTO) 1 % (0-1); EOSINOPHILS # (AUTO) 0.15 x10^3/uL (0-0.4); EOSINOPHILS % (AUTO) 2 % (1-7); LYMPHOCYTES # (AUTO) 3.24 x10^3/uL (1-3.4); LYMPHOCYTES % (AUTO) 31 % (22-44); MD NO; MEAN CORPUSCULAR HGB CONC 32.7 g/dL (33.2-36.2); MEAN CORPUSCULAR VOLUME 79.7 fL (81-97); MEAN PLATELET VOLUME 6.6 fL (7.4-10.4); MONOCYTES # (AUTO) 0.96 x10^3/uL (0.2-0.8); MONOCYTES % (AUTO) 9 % (2-9); NEUTROPHILS # (AUTO) 6.05 x10^3/uL (1.8-6.8); NEUTROPHILS % (AUTO) 58 % (42-75); PLATELET COUNT 760 x10^3/uL (130-400); RED BLOOD COUNT 3.25 x10^6/uL (4.38-5.82); RED CELL DISTRIBUTION WIDTH 17.6 % (9.4-14.8)
[2019-08-23 05:36] LABS: ANION GAP 7 mmol/L (5-15); CALCIUM 8.4 mg/dL (8.5-10.1); CHLORIDE 107 mmol/L (98-107); CREATININE 0.69 mg/dL (0.7-1.3)
[2019-08-23 07:37] VITALS: BP 132/82
[2019-08-23] MEDS: FOLIC ACID 1 MG TABLET PO SCH (08:48)
[2019-08-23] MEDS: THIAMINE 100MG TABLET PO SCH (08:48)
[2019-08-23] MEDS: MULTIVITAMIN 1 TABLET PO SCH (08:48)
[2019-08-23] MEDS: POTASSIUM CHLORIDE 20 MEQ TAB.ER.PRT PO SCH ×2 (08:48→17:13)
[2019-08-23] MEDS: FAMOTIDINE 20 MG TABLET PO SCH ×2 (08:49→22:33)
[2019-08-23] MEDS: GUAIFENESIN ER 600 MG TABLET PO SCH ×2 (08:49→22:32)
[2019-08-23] MEDS: SENNA/DOCUSATE TABLET PO SCH (08:53)
[2019-08-23] MEDS: ENOXAPARIN 40 MG/0.4 ML SQ SCH (11:30)
[2019-08-23 13:11] VITALS: BP 123/80
[2019-08-23 20:22] VITALS: BP 121/74
[2019-08-24] MEDS: OXYcodone IR 5MG TABLET PO PRN ×4 (02:15→16:47)
[2019-08-24] MEDS: ACETAMINOPHEN 325 MG TABLET PO PRN (02:15)
[2019-08-24 02:20] VITALS: BP 127/77
[2019-08-24] MEDS: OMEPRAZOLE 20 MG CAPSULE.DR PO SCH (06:23)
[2019-08-24] MEDS: ASPIRIN 81 MG TABLET EC PO SCH (06:23)
[2019-08-24] MEDS: AMPICILLIN/SULBACTAM 3 GM in SODIUM CHLORIDE 0.9% 100 ML IV SCH ×3 (06:23→18:30)
[2019-08-24 08:26] VITALS: BP 130/83
[2019-08-24] MEDS: POTASSIUM CHLORIDE 20 MEQ TAB.ER.PRT PO SCH ×2 (08:27→16:46)
[2019-08-24] MEDS: THIAMINE 100MG TABLET PO SCH (08:28)
[2019-08-24] MEDS: GUAIFENESIN ER 600 MG TABLET PO SCH ×2 (08:28→20:04)
[2019-08-24] MEDS: SENNA/DOCUSATE TABLET PO SCH (08:28)
[2019-08-24] MEDS: MULTIVITAMIN 1 TABLET PO SCH (08:28)
[2019-08-24] MEDS: FAMOTIDINE 20 MG TABLET PO SCH ×2 (08:28→20:04)
[2019-08-24] MEDS: FOLIC ACID 1 MG TABLET PO SCH (08:28)
[2019-08-24 12:02] LABS: BASOPHILS # (AUTO) 0.08 x10^3/uL (0-0.1); BASOPHILS % (AUTO) 1 % (0-1); EOSINOPHILS % (AUTO) 2 % (1-7); LYMPHOCYTES % (AUTO) 31 % (22-44); MD NO; MEAN CORPUSCULAR HEMOGLOBIN 25.6 pg (27.5-34.5); MEAN CORPUSCULAR HGB CONC 31.8 g/dL (33.2-36.2); MEAN CORPUSCULAR VOLUME 80.6 fL (81-97); MEAN PLATELET VOLUME 6.6 fL (7.4-10.4); MONOCYTES # (AUTO) 1.07 x10^3/uL (0.2-0.8); MONOCYTES % (AUTO) 11 % (2-9); NEUTROPHILS # (AUTO) 5.23 x10^3/uL (1.8-6.8); NEUTROPHILS % (AUTO) 55 % (42-75); PLATELET COUNT 752 x10^3/uL (130-400); RED BLOOD COUNT 3.46 x10^6/uL (4.38-5.82); RED CELL DISTRIBUTION WIDTH 18.2 % (9.4-14.8)
[2019-08-24 12:10] LABS: ANION GAP 7 mmol/L (5-15); CALCIUM 8.7 mg/dL (8.5-10.1); CHLORIDE 105 mmol/L (98-107)
[2019-08-24] MEDS: ENOXAPARIN 40 MG/0.4 ML SQ SCH (12:24)
[2019-08-24] MEDS ORDERED: SENN-193 PO (13:22)
[2019-08-24] MEDS ORDERED: GUAI600T31 PO (13:22)
[2019-08-24] MEDS ORDERED: OXYC5TAB3 PO (13:22)
[2019-08-24] MEDS ORDERED: FAMO20TA7 PO (13:22)
[2019-08-24 14:00] VITALS: BP 134/79
[2019-08-24] MEDS: MORPHINE SULFATE 4 MG/ML, 1ML IVPush PRN (20:04)
== END 2019-08-24 20:47 | DRG 853 ==
LOC: ED 19:06 → EDIP 20:00 → 4EST 21:30 → 4WST 08-04 19:29 → 4NE 08-21 18:35
PROVIDERS: ADMIT Family Medicine; ATTEND Hospitalist
PROC: 0W9B30Z Drainage of Left Pleural Cavity with Drainage Device, Percutaneous Approach (ICD-10-PCS; principal; 2019-08-08)
PROC: 0BNC4ZZ Release Right Upper Lung Lobe, Percutaneous Endoscopic Approach (ICD-10-PCS; 2019-08-12)
PROC: 0BDC4ZX Extraction of Right Upper Lung Lobe, Percutaneous Endoscopic Approach, Diagnostic (ICD-10-PCS; 2019-08-12)
PROC: 02HV33Z Insertion of Infusion Device into Superior Vena Cava, Percutaneous Approach (ICD-10-PCS; 2019-08-16)
PROC: B548ZZA Ultrasonography of Superior Vena Cava, Guidance (ICD-10-PCS; 2019-08-16)
PROC: 0BQ Respiratory System, Repair (ICD-10-PCS; 2019-08-21)
PROC: 0BNJ4ZZ Release Left Lower Lung Lobe, Percutaneous Endoscopic Approach (ICD-10-PCS; 2019-08-21)
DX: A41.9 Sepsis, unspecified organism (principal); E43 Unspecified severe protein-calorie malnutrition; J15.0 Pneumonia due to Klebsiella pneumoniae; J86.0 Pyothorax with fistula; J96.01 Acute respiratory failure with hypoxia; R65.21 Severe sepsis with septic shock; J86.9 Pyothorax without fistula; E87.1 Hypo-osmolality and hyponatremia; J90 Pleural effusion, not elsewhere classified; J98.11 Atelectasis; D50.9 Iron deficiency anemia, unspecified; D63.8 Anemia in other chronic diseases classified elsewhere; E83.39 Other disorders of phosphorus metabolism; E87.6 Hypokalemia; F10.20 Alcohol dependence, uncomplicated; F15.10 Other stimulant abuse, uncomplicated; F17.210 Nicotine dependence, cigarettes, uncomplicated; F43.10 Post-traumatic stress disorder, unspecified; F51.04 Psychophysiologic insomnia; G89.4 Chronic pain syndrome; I10 Essential (primary) hypertension; K21.9 Gastro-esophageal reflux disease without esophagitis; S20.219A Contusion of unspecified front wall of thorax, initial encounter; Z82.5 Family history of asthma and other chronic lower respiratory diseases; Z87.01 Personal history of pneumonia (recurrent); Z88.0 Allergy status to penicillin
CPT/HCPCS: 32555; 36415; 36600; 82042; 82150; 82945; 84145; 87400; 89051; J3490; J7042; J7613; 36573; 71045; 71260; 76705; 80048; 80053; 80202; 82565; 82607; 82803; 83540; 83550; 83605; 83615; 83735; 84100; 84157; 85014; 85018; 85025; 85651; 86140; 86480; 87015; 87040; 87070; 87075; 87076; 87077; 87102; 87116; 87176; 87186; 87205; 87206; 93005; C1729; G0378; J0295; J0690; J0696; J1100; J1650; J1885; J2250; J2405; J2704; J2710; J3010; J3370; J3411; J3475; J3480; J7060; Q9967; C1751; C1760; J0330; J1940; J2175; J2270; J7030; J7050; J7120